=== PATIENT | female | born 1930 | race Caucasian/White ===

== ENCOUNTER 2018-02-19 19:22 | Inpatient (IN) | payer MEDICARE ==
[~2018-02-19] VITALS: Ht 160 cm; Wt 43.7 kg
[~2018-02-19 19:22] MED LIST: ACET325T9 PO; ACET325T9 PR; BISA-42 PR; BISA10SU13 RC; CRAN400C PO; DICL100G18 TP; GUAI-297 PO; HYDR-2762 PO; HYOS0.1264 PO; Lactobacillus PO; MAGN400T22 PO; MELA5CAP PO; MULTI VITAMINS PO; POLY17PO29 PO; SULF-143 PO; TRAM50TA PO; TRIM100T13 PO; WARF3TAB54 PO
[2018-02-19 19:59] LABS: BILIRUBIN,URINE NEGATIVE (NEG); CLARITY,URINE TURBID; COLOR,URINE YELLOW; NITRITE,URINE NEGATIVE (NEG); PH,URINE 8.5; PROTEIN,URINE 100 mg/dL (NEG-TRACE); UROBILINOGEN,URINE 0.2 mg/dL (0.2 mg/dL)
[2018-02-19] MEDS ORDERED: VANCOMYCIN PER PHARMACY MC PRN (20:00)
[2018-02-19] MEDS ORDERED: IV NORMAL SALINE 500ML BAG 500 ML IV PRN (20:00)
[2018-02-19 20:07] LABS: BACTERIA,URINE MANY /HPF (0-FEW); SQUAMOUS EPITHELIAL CELL,UR FEW /LPF; WBC,URINE >40 /HPF (0-4)
[2018-02-19 20:09] LABS: BASO # 0.1 x10^3/uL (0.0-0.2); BASO % 0 % (0-3); EOS % 0 % (0-3); HEMATOCRIT 30.7 % (36.0-47.0); HEMOGLOBIN 10.2 g/dL (12.0-15.5); LYMPH # 0.9 x10^3/uL (1.0-4.8); LYMPH % 5 % (24-48); MEAN CORPUSCULAR HEMOGLOBIN 32 pg (25-35); MEAN CORPUSCULAR HGB CONC 33 g/dL (31-37); MEAN CORPUSCULAR VOLUME 95 fL (79-100); MONO # 1.4 x10^3/uL (0.0-1.1); MONO % 7 % (0-9); NEUT % 87 % (31-73); PLATELET COUNT 424 x10^3/uL (140-400); RED BLOOD COUNT 3.22 x10^6/uL (3.50-5.40); RED CELL DISTRIBUTION WIDTH 13.7 % (11.5-14.5); WHITE BLOOD COUNT 19.5 x10^3/uL (4.0-11.0)
[2018-02-19] MEDS: IV NORMAL SALINE 1000ML BAG 1,000 ML IV SCH ×2 (20:25→20:34)
[2018-02-19] MEDS ORDERED: ACETAMINOPHEN 650 MG SUPP.RECT. PR ONE (20:30)
[2018-02-19] MEDS ORDERED: PIPERACILLIN/TAZOBACTAM 3.375 GM in IV NORMAL SALINE 50ML 50 ML IV ONE (20:30)
[2018-02-19 20:34] LABS: CALCIUM 9.6 mg/dL (8.5-10.1); GFR 23.5; POTASSIUM 4.1 mmol/L (3.5-5.1)
[2018-02-19 20:40] LABS: ALBUMIN 2.7 g/dL (3.4-5.0); ALBUMIN/GLOBULIN RATIO 0.4 (1.0-1.7); MAGNESIUM 2.3 mg/dL (1.8-2.4); TOTAL BILIRUBIN 0.2 mg/dL (0.2-1.0); TOTAL PROTEIN 9.4 g/dL (6.4-8.2)
--- NOTE | 2018-02-19 20:51 | RAD ---
CT HEAD INDICATION: Altered mental status COMPARISON: None Available. TECHNIQUE: 5 mm contiguous axial images were obtained from the skull base to the vertex. Exposure: One or more of the following individualized dose reduction techniques were utilized for this examination: 1. Automated exposure control 2. Adjustment of the mA and/or kV according to patient size 3. Use of iterative reconstruction technique CT FINDINGS: Moderate bilateral periventricular white matter hypodensities likely chronic small vessel ischemic disease. No evidence of acute intracranial hemorrhage. No extra-axial fluid collections. No mass effect or midline shift. Ventricular size is appropriate. Basal cisterns are patent. No fractures identified.Daugherty-white differentiation is preserved.Globes and orbits are within normal limits. Opacification the bilateral mastoid air cells similar to prior exam. IMPRESSION: No acute intracranial findings. Electronically signed by: Misha Laboy MD (02/19/2018 8:48 PM) [facility]
[2018-02-19] MEDS ORDERED: VANCOMYCIN 1.25 GM in IV NORMAL SALINE 250ML 250 ML IV ONE (21:00)
[2018-02-19 21:05] LABS: % BANDS 1 % (0-9); % BASOS 1 % (0-3); % LYMPHS 8 % (24-48); % MONOS 8 % (0-10); % SEGS 82 % (35-66)
[2018-02-19 21:07] LABS: PLT ESTIMATE ADEQUATE (ADEQUATE)
--- NOTE | 2018-02-19 21:08 | PHYS DOC ---
Past Medical History Past Medical History: Dementia, Other Additional Past Medical Histor: Dementia, falls, left femur fx, CKD, UTI, Constipation,Knee pain,Hypokalemia Past Surgical History: Other Additional Past Surgical Histo: left femur fx with pain Alcohol Use: None Drug Use: None Adult General Chief Complaint Chief Complaint: ALTERED MENTAL STATUS HPI HPI Patient is a 87 year old female with a history of dementia who presents today from the local retirement to be evaluated for altered status mental state change. A retirement employees they noted patient was not acting like herself today. Patient is alert and oriented 1. She arrives in the ED with a temperature of 101.7 with a heart rate in the 120s. Review of Systems Review of Systems Constitutional: Fever Eyes: Unable to assess HENT: Unable to assess Respiratory: Unable to assess Cardiovascular: Unable to assess GI: Unable to assess : Unable to assess Musculoskeletal: Unable to assess Integument: unable to assess Neurologic: Unable to assess All other systems were reviewed and found to be within normal limits, except as documented in this note. Current Medications Current Medications Current Medications Medications (Trade) Dose Ordered Sig/Raisa Start Time Stop Time Status Last Admin Dose Admin Sodium Chloride 500 ml @ 1,000 mls/hr PRN Q30MIN PRN 02/19/18 20:00 Vancomycin HCl (Vanco Per Pharmacy) 1 each PRN DAILY PRN 02/19/18 20:00 Allergies Allergies Allergies Coded Allergies Type Severity Reaction Last Updated Verified levofloxacin Allergy Intermediate 09/01/15 Yes Physical Exam Physical Exam Constitutional: Thin appearing toxic patient HENT: Normocephalic, atraumatic, bilateral external ears normal, oropharynx moist, no oral exudates, nose normal. Very poor oral hygiene. Eyes: PERRLA, EOMI, conjunctiva normal, no discharge. [] Neck: Normal range of motion, no tenderness, supple, no stridor. [] Cardiovascular: Tachycardic Lungs & Thorax: Diminished breath sounds to posterior lung bases Abdomen: Bowel sounds normal, soft, no tenderness, no masses, no pulsatile masses. [] Skin: Warm, very dry dry skin, no erythema, no rash. [] Back: No tenderness, no CVA tenderness. [] Extremities: No tenderness, no cyanosis, no clubbing, ROM intact, no edema. [] Neurologic: Alert and oriented X 1, normal motor function, normal sensory function, no focal deficits noted. [] Psychologic: Affect normal, judgement normal, mood normal. [] Current Patient Data Vital Signs Vital Signs Date Time Temp Pulse Resp B/P (MAP) Pulse Ox O2 Delivery O2 Flow Rate FiO2 02/19/18 19:25 101.7 121 28 108/57 (74) 92 Room Air 101.7 Lab Values Laboratory Tests Test 02/19/18 19:30 02/19/18 19:45 Urine Collection Type U cath Urine Color Yellow Urine Clarity Turbid Urine pH 8.5 Urine Specific [place] 1.015 Urine Protein 100 mg/dL (NEG-TRACE) Urine Glucose (UA) Negative mg/dL (NEG) Urine Ketones (Stick) Negative mg/dL (NEG) Urine Blood Moderate (NEG) Urine Nitrite Negative (NEG) Urine Bilirubin Negative (NEG) Urine Urobilinogen Dipstick 0.2 mg/dL (0.2 mg/dL) Urine Leukocyte Esterase Large (NEG) Urine RBC 3-5 /HPF (0-2) Urine WBC >40 /HPF (0-4) Urine Squamous Epithelial Cells Few /LPF Urine Transitional Epithelial Cells Occ /LPF Urine Bacteria Many /HPF (0-FEW) Urine Mucus Marked /LPF White Blood Count 19.5 x10^3/uL (4.0-11.0) H Red Blood Count 3.22 x10^6/uL (3.50-5.40) L Hemoglobin 10.2 g/dL (12.0-15.5) L Hematocrit 30.7 % (36.0-47.0) L Mean Corpuscular Volume 95 fL (79-100) Mean Corpuscular Hemoglobin 32 pg (25-35) Mean Corpuscular Hemoglobin Concent 33 g/dL (31-37) Red Cell Distribution Width 13.7 % (11.5-14.5) Platelet Count 424 x10^3/uL (140-400) H Neutrophils (%) (Auto) 87 % (31-73) H Lymphocytes (%) (Auto) 5 % (24-48) L Monocytes (%) (Auto) 7 % (0-9) Eosinophils (%) (Auto) 0 % (0-3) Basophils (%) (Auto) 0 % (0-3) Neutrophils # (Auto) 17.0 x10^3uL (1.8-7.7) H Lymphocytes # (Auto) 0.9 x10^3/uL (1.0-4.8) L Monocytes # (Auto) 1.4 x10^3/uL (0.0-1.1) H Eosinophils # (Auto) 0.0 x10^3/uL (0.0-0.7) Basophils # (Auto) 0.1 x10^3/uL (0.0-0.2) Segmented Neutrophils % 82 % (35-66) H Band Neutrophils % 1 % (0-9) Lymphocytes % 8 % (24-48) L Monocytes % 8 % (0-10) Basophils % 1 % (0-3) Platelet Estimate Adequate (ADEQUATE) Sodium Level 137 mmol/L (136-145) Potassium Level 4.1 mmol/L (3.5-5.1) Chloride Level 100 mmol/L (98-107) Carbon Dioxide Level 24 mmol/L (21-32) Anion Gap 13 (6-14) Blood Urea Nitrogen 31 mg/dL (7-20) H Creatinine 2.0 mg/dL (0.6-1.0) H Estimated GFR (Cockcroft-Gault) 23.5 BUN/Creatinine Ratio 16 (6-20) Glucose Level 171 mg/dL (70-99) H Lactic Acid Level 3.0 mmol/L (0.4-2.0) H Calcium Level 9.6 mg/dL (8.5-10.1) Magnesium Level 2.3 mg/dL (1.8-2.4) Total Bilirubin 0.2 mg/dL (0.2-1.0) Aspartate Amino Transferase (AST) 14 U/L (15-37) L Alanine Aminotransferase (ALT) 16 U/L (14-59) Alkaline Phosphatase 95 U/L (46-116) Troponin I Quantitative < 0.017 ng/mL (0.000-0.055) Total Protein 9.4 g/dL (6.4-8.2) H Albumin 2.7 g/dL (3.4-5.0) L Albumin/Globulin Ratio 0.4 (1.0-1.7) L Procalcitonin 0.36 ng/mL (0.00-0.10) H Laboratory Tests 02/19/18 19:45 Laboratory Tests 02/19/18 19:45 EKG EKG [] Radiology/Procedures Radiology/Procedures [] Course & Med Decision Making Course & Med Decision Making Pertinent Labs and Imaging studies reviewed. (See chart for details) This is a 87-year-old female patient presented to the ED today from the local retirement to be assessed for altered status mental change. Patient arrives in the ED with a temperature of 101.7 and a heart rate in the 120s. Blood pressure 108/57. Sepsis workup was initiated. Patient is alert and oriented to self hx of Dementia. Sepsis workup was initiated including IV fluids and antibiotics. Patient given Zosyn and vancomycin per sepsis protocol. Also given Tylenol suppository. CBC with a WBC of 19.5 with a left shift. Urine analysis is noted for UTI. Lactic 3.0. Creatinine 2.0 BUN 31, unknown if patient has history of renal failure. CT of the head is negative for any acute findings. 20:[address] Geronimo who accepted patient for the admission Routine consult placed for infectious disease. Dragon Disclaimer Dragon Disclaimer This electronic medical record was generated, in whole or in part, using a voice recognition dictation system. Departure Departure Impression: Primary Impression: Acute sepsis Additional Impressions: Urinary tract infection Fever Tachycardia Altered mental status Disposition: ADMITTED INPATIENT Condition: STABLE Referrals: UNKNOWN PCP NAME (PCP) Problem Qualifiers Additional Impressions: Urinary tract infection Urinary tract infection type: site unspecified Hematuria presence: without hematuria Qualified Codes: N39.0 - Urinary tract infection, site not specified Fever Fever type: unspecified Qualified Codes: R50.9 - Fever, unspecified Altered mental status Altered mental status type: unspecified Qualified Codes: R41.82 - Altered mental status, unspecified [employer] [place] Feb 19, 2018 21:08
[2018-02-19] MEDS ORDERED: ACETAMINOPHEN 325 MG TABLET. PO PRN (21:30)
[2018-02-19] MEDS ORDERED: MORPHINE SULFATE 4 MG/ML VIAL. IV PRN (21:30)
[2018-02-19] MEDS ORDERED: ONDANSETRON PF 4 MG/2 ML VIAL. IV PRN (21:30)
[2018-02-19] MEDS ORDERED: IV NORMAL SALINE 1000ML BAG 1,000 ML IV ONE (21:30)
[2018-02-19 21:36] VITALS: BP 101/48
[2018-02-19 23:00] VITALS: BP 96/56
[2018-02-19] MEDS ORDERED: ONDA4TAB11 PO (23:35)
[2018-02-19] MEDS ORDERED: CYAN10005 PO (23:35)
[2018-02-19] MEDS ORDERED: VENL75TA PO (23:35)
[2018-02-19] MEDS ORDERED: MAG360OR24 PO (23:35)
[2018-02-19] MEDS ORDERED: NYST100054 TP (23:35)
[2018-02-20] MEDS ORDERED: PIPERACILLIN/TAZOBACTAM 4.5 GM in IV NORMAL SALINE 100ML 100 ML IV SCH ×2
[2018-02-20 03:00] VITALS: BP 91/54
[2018-02-20 05:06] LABS: BASO # 0.1 x10^3/uL (0.0-0.2); BASO % 1 % (0-3); EOS # 0.1 x10^3/uL (0.0-0.7); EOS % 0 % (0-3); HEMATOCRIT 23.2 % (36.0-47.0); HEMOGLOBIN 7.7 g/dL (12.0-15.5); LYMPH # 1.3 x10^3/uL (1.0-4.8); LYMPH % 9 % (24-48); MEAN CORPUSCULAR HEMOGLOBIN 32 pg (25-35); MEAN CORPUSCULAR HGB CONC 33 g/dL (31-37); MEAN CORPUSCULAR VOLUME 95 fL (79-100); MONO # 1.4 x10^3/uL (0.0-1.1); MONO % 10 % (0-9); NEUT # 11.4 x10^3uL (1.8-7.7); NEUT % 80 % (31-73); PLATELET COUNT 323 x10^3/uL (140-400); RED BLOOD COUNT 2.43 x10^6/uL (3.50-5.40); RED CELL DISTRIBUTION WIDTH 13.6 % (11.5-14.5); WHITE BLOOD COUNT 14.2 x10^3/uL (4.0-11.0)
[2018-02-20 05:52] LABS: CALCIUM 7.8 mg/dL (8.5-10.1); CREATININE 1.8 mg/dL (0.6-1.0); GFR 26.6; POTASSIUM 3.6 mmol/L (3.5-5.1)
[2018-02-20 07:56] VITALS: BP 117/45
--- NOTE | 2018-02-20 08:37 | RAD ---
CHEST AP ONLY History: Altered mental status Comparison: January 31, 2016 Findings: Single view of the chest is submitted. There is mild interstitial opacity bilaterally as seen previously, no new lobar consolidation or pleural fluid. There is again eventration right hemidiaphragm. There is no pneumothorax. There is somewhat round opacity medial right lung base, difficult to exclude a nodule this exam. There is atherosclerotic calcification near aortic arch. Heart size is within normal limits. Impression: 1. There is a somewhat round opacity medial right lung base, small nodule difficult to exclude although may be due to the vasculature for which two-view chest radiograph is recommended. Electronically signed by: Moe Reyes MD (02/20/2018 8:34 AM) [facility]
--- NOTE | 2018-02-20 09:25 | PDOC ---
Infectious Disease Note Vital Sign Vital Signs Vital Signs Date Time Temp Pulse Resp B/P (MAP) Pulse Ox O2 Delivery O2 Flow Rate FiO2 02/20/18 07:56 97.8 81 20 117/45 (69) 100 Room Air 97.8 Labs Lab Laboratory Tests Test 02/19/18 19:30 02/19/18 19:45 02/19/18 23:29 02/20/18 03:56 Urine Collection Type U cath Urine Color Yellow Urine Clarity Turbid Urine pH 8.5 Urine Specific [place] 1.015 Urine Protein 100 mg/dL (NEG-TRACE) Urine Glucose (UA) Negative mg/dL (NEG) Urine Ketones (Stick) Negative mg/dL (NEG) Urine Blood Moderate (NEG) Urine Nitrite Negative (NEG) Urine Bilirubin Negative (NEG) Urine Urobilinogen Dipstick 0.2 mg/dL (0.2 mg/dL) Urine Leukocyte Esterase Large (NEG) Urine RBC 3-5 /HPF (0-2) Urine WBC >40 /HPF (0-4) Urine Squamous Epithelial Cells Few /LPF Urine Transitional Epithelial Cells Occ /LPF Urine Bacteria Many /HPF (0-FEW) Urine Mucus Marked /LPF White Blood Count 19.5 x10^3/uL (4.0-11.0) 14.2 x10^3/uL (4.0-11.0) Red Blood Count 3.22 x10^6/uL (3.50-5.40) 2.43 x10^6/uL (3.50-5.40) Hemoglobin 10.2 g/dL (12.0-15.5) 7.7 g/dL (12.0-15.5) Hematocrit 30.7 % (36.0-47.0) 23.2 % (36.0-47.0) Mean Corpuscular Volume 95 fL (79-100) 95 fL (79-100) Mean Corpuscular Hemoglobin 32 pg (25-35) 32 pg (25-35) Mean Corpuscular Hemoglobin Concent 33 g/dL (31-37) 33 g/dL (31-37) Red Cell Distribution Width 13.7 % (11.5-14.5) 13.6 % (11.5-14.5) Platelet Count 424 x10^3/uL (140-400) 323 x10^3/uL (140-400) Neutrophils (%) (Auto) 87 % (31-73) 80 % (31-73) Lymphocytes (%) (Auto) 5 % (24-48) 9 % (24-48) Monocytes (%) (Auto) 7 % (0-9) 10 % (0-9) Eosinophils (%) (Auto) 0 % (0-3) 0 % (0-3) Basophils (%) (Auto) 0 % (0-3) 1 % (0-3) Neutrophils # (Auto) 17.0 x10^3uL (1.8-7.7) 11.4 x10^3uL (1.8-7.7) Lymphocytes # (Auto) 0.9 x10^3/uL (1.0-4.8) 1.3 x10^3/uL (1.0-4.8) Monocytes # (Auto) 1.4 x10^3/uL (0.0-1.1) 1.4 x10^3/uL (0.0-1.1) Eosinophils # (Auto) 0.0 x10^3/uL (0.0-0.7) 0.1 x10^3/uL (0.0-0.7) Basophils # (Auto) 0.1 x10^3/uL (0.0-0.2) 0.1 x10^3/uL (0.0-0.2) Segmented Neutrophils % 82 % (35-66) Band Neutrophils % 1 % (0-9) Lymphocytes % 8 % (24-48) Monocytes % 8 % (0-10) Basophils % 1 % (0-3) Platelet Estimate Adequate (ADEQUATE) Sodium Level 137 mmol/L (136-145) 139 mmol/L (136-145) Potassium Level 4.1 mmol/L (3.5-5.1) 3.6 mmol/L (3.5-5.1) Chloride Level 100 mmol/L (98-107) 107 mmol/L (98-107) Carbon Dioxide Level 24 mmol/L (21-32) 24 mmol/L (21-32) Anion Gap 13 (6-14) 8 (6-14) Blood Urea Nitrogen 31 mg/dL (7-20) 28 mg/dL (7-20) Creatinine 2.0 mg/dL (0.6-1.0) 1.8 mg/dL (0.6-1.0) Estimated GFR (Cockcroft-Gault) 23.5 26.6 BUN/Creatinine Ratio 16 (6-20) Glucose Level 171 mg/dL (70-99) 101 mg/dL (70-99) Lactic Acid Level 3.0 mmol/L (0.4-2.0) 1.0 mmol/L (0.4-2.0) 1.0 mmol/L (0.4-2.0) Calcium Level 9.6 mg/dL (8.5-10.1) 7.8 mg/dL (8.5-10.1) Magnesium Level 2.3 mg/dL (1.8-2.4) Total Bilirubin 0.2 mg/dL (0.2-1.0) Aspartate Amino Transf (AST/SGOT) 14 U/L (15-37) Alanine Aminotransferase (ALT/SGPT) 16 U/L (14-59) Alkaline Phosphatase 95 U/L (46-116) Troponin I Quantitative < 0.017 ng/mL (0.000-0.055) Total Protein 9.4 g/dL (6.4-8.2) Albumin 2.7 g/dL (3.4-5.0) Albumin/Globulin Ratio 0.4 (1.0-1.7) Procalcitonin 0.36 ng/mL (0.00-0.10) Objective Assessment fever Encephalopathy - better Abx allergy - Levoflox - mental status change UTI- POA JINNY Interstitial opacity Anemia - per primary Plan Plan of Care Cont Zosyn Hold further Vanc dose Zyvox F/u labs and cults Repeat CXR May need swallow eval D/w son Thank you # [phone] MARIFER MILES MD Feb 20, 2018 09:25
[2018-02-20] MEDS: PIPERACILLIN/TAZOBACTAM 2.25 GM in IV NORMAL SALINE 50ML 50 ML IV SCH ×4 (09:30→23:34)
--- NOTE | 2018-02-20 09:45 | RAD ---
Portable chest, 02/20/2018: HISTORY: Follow-up infiltrates Comparison is made to yesterday's study. The heart size is normal. There is calcific plaquing of the aorta. Tc calcifications are present at the left hilum. Slight unchanged prominence of the pulmonary markings is probably due to scarring. No prior consolidation is seen. There is no evidence of pleural fluid. IMPRESSION: No acute cardiopulmonary abnormality is detected with no significant change since yesterday's study. Electronically signed by: Tyron Varghese MD (02/20/2018 9:42 AM) [facility]
[2018-02-20 11:00] VITALS: BP 102/52
[2018-02-20] MEDS ORDERED: ACETAMINOPHEN 325 MG TABLET. PO PRN (11:00)
[2018-02-20] MEDS ORDERED: DOCUSATE SODIUM 100 MG CAPSULE. PO PRN (11:00)
[2018-02-20] MEDS ORDERED: MORPHINE SULFATE 2 MG/ML VIAL. IV PRN (11:00)
[2018-02-20] MEDS ORDERED: ONDANSETRON PF 4 MG/2 ML VIAL. IV PRN (11:00)
[2018-02-20] MEDS: IV NORMAL SALINE 1000ML BAG 1,000 ML IV SCH (11:34)
[2018-02-20] MEDS: CYANOCOBALAMIN (VITAMIN B-12) 1,000 MCG TABLET. PO SCH (11:36)
[2018-02-20] MEDS: MULTIVITAMIN with MINERAL TABLET. PO SCH (11:37)
[2018-02-20] MEDS: VENLAFAXINE 50 MG TABLET. PO SCH ×2 (12:42→21:30)
[2018-02-20] MEDS: HEPARIN PF for SUB-Q USE 5,000 UNIT/0.5 ML VIAL. SQ SCH ×2 (12:44→21:41)
--- NOTE | 2018-02-20 12:55 | CONS ---
DATE OF CONSULTATION: 02/20/2018 ROOM: 656. REQUESTING PHYSICIAN: Amparo Barakat APRN for Dr. Geronimo. REASON FOR CONSULTATION: Sepsis, UTI. HISTORY OF PRESENT ILLNESS: The patient is an 87-year-old senior care resident with a distant history of urinary tract infections. Her son is with her this morning and states over the past week, her appetite has decreased per the nursing facility staff. However, yesterday, he left about noon and she was doing fine, but then, he received a phone call at about 5:00 in the afternoon that her heart rate had increased and she developed a mental status change. She was brought to [facility]. She had a temperature of 101.7, heart rate was elevated in the 120s, white count was 19.5. Urinalysis was suggestive of a urinary tract infection and creatinine was elevated at 2. She was given a dose of Zosyn, placed on vancomycin. A chest x-ray was obtained and showed she had a mild interstitial opacity bilaterally. She was admitted to the floor. This morning, her son states she is much better. She ate better. She is not able to give a review of systems secondary to her dementia. PAST MEDICAL HISTORY: Positive for dementia, history of chronic knee pain, history of left femur fracture that has been repaired, history of Klebsiella UTI in 08/2015, resistant to ampicillin, Unasyn, intermediate to Keflex and Macrobid. REVIEW OF SYSTEMS: Unobtainable. ALLERGIES: LISTED LEVOFLOXACIN, WHICH CAUSED A MENTAL STATUS CHANGE. SOCIAL HISTORY: She is a senior care resident. No recent tobacco or alcohol. FAMILY HISTORY: Noncontributory. CURRENT MEDICATIONS: Again, she received a dose of Zosyn. He has been placed on vancomycin per pharmacy, Tylenol suppositories, morphine. Other meds are available and reviewed in the chart. PHYSICAL EXAMINATION: VITAL SIGNS: T-max was 101.7 on arrival, currently 97.8, pulse 81, respirations 20, blood pressure 117/45, satting 100% on room air. CONSTITUTIONAL: She is alert. She smiles. She has normal conjunctivae. Mouth is dry. NECK: Without JVD. LUNGS: Clear to auscultation. HEART: S1, S2. ABDOMEN: Soft, nontender. EXTREMITIES: No clubbing, cyanosis or . SKIN: Warm to touch without signs of rash. NEUROLOGIC: She is alert and did focus. LABORATORY VALUES: White count today 14.2, hemoglobin 7.7, platelets of 323, neutrophils 8, lymphs are 9. She had 1 band, 82 segs on arrival. Creatinine today is 1.8, glucose of 101. Procalcitonin 0.36. Normal liver function study tests. Urinalysis reviewed in the history of present illness. X-RAY: Reviewed in history of present illness. IMPRESSION: 1. Fever. 2. Encephalopathy, better. 3. ANTIBIOTIC ALLERGY, LEVOFLOXACIN CAUSED MENTAL STATUS CHANGE. 4. Urinary tract infection, present on admission. 5. Acute kidney injury. 6. Interstitial opacity on chest x-ray. 7. Anemia, per primary. RECOMMENDATIONS: We will continue Zosyn. We will hold further vancomycin, we will dose Zyvox. Will follow up labs, cultures, repeat her chest x-ray, may need a swallow evaluation as discussed with her son. If you have any further concerns or questions, please do not hesitate to contact me. MARIFER MILES MD DR: CAMILLE/bret JOB#: [id number] / [id number]
--- NOTE | 2018-02-20 13:43 | PDOC1 ---
History and Physical Date of Admission Date of Admission 02/20/18 Identification/Chief Complaint Chief Complaint ams fever Source Source: Chart review History of Present Illness History of Present Illness HPI HPI Patient is a 87 year old female with a history of dementia who presents today from the local senior living to be evaluated for altered status mental state change. pt has baseline severe dementia, this is likely her baseline? as per ERP, [facility] employees they noted patient was not acting like herself today. Patient is alert and oriented 1. She arrives in the ED with a temperature of 101.7 with a heart rate in the 120s. urine looks UTI. with high wbc and fever. pt not answer any questions or follow commands. Past Medical History CENTRAL NERVOUS SYSTEM: Dementia Renal/: UTI, Urinary Incontinence Past Surgical History Past Surgical History: Other Family History Family History: Hypertension Social History Smoke: No ALCOHOL: none Drugs: None Current Problem List Problem List Problems Medical Problems: (1) Acute sepsis Status: Acute (2) Altered mental status Status: Acute (3) Fever Status: Acute (4) Tachycardia Status: Acute (5) Urinary tract infection Status: Acute Current Medications Current Medications Current Medications Medications (Trade) Dose Ordered Sig/Raisa Start Time Stop Time Status Last Admin Dose Admin Acetaminophen (Tylenol Supp) 650 mg 1X ONCE 02/19/18 20:30 02/19/18 20:31 DC 02/19/18 20:30 650 MG Acetaminophen (Tylenol) 650 mg PRN Q6HRS PRN 02/20/18 11:00 Cyanocobalamin (Vitamin B-12) 1,000 mcg DAILY08 02/20/18 11:30 02/20/18 11:36 1,000 MCG Docusate Sodium (Colace) 100 mg PRN DAILY PRN 02/20/18 11:00 Heparin Sodium (Porcine) (Heparin Sq) 5,000 unit Q8HRS 02/20/18 14:00 02/20/18 12:44 5,000 UNIT Lactobacillus Rhamnosus (Culturelle) 1 cap BID 02/20/18 21:00 Linezolid/Dextrose 300 ml @ 300 mls/hr Q12HR 02/20/18 10:00 02/20/18 10:16 300 MLS/HR Morphine Sulfate (Morphine Sulfate) 2 mg PRN Q2HR PRN 02/20/18 11:00 Multivitamins (Thera M Plus) 1 tab DAILY 02/20/18 11:30 02/20/18 11:37 1 TAB Ondansetron HCl (Zofran) 4 mg PRN Q6HRS PRN 02/20/18 11:00 Piperacillin Sod/ Tazobactam Sod 2.25 gm/Sodium Chloride 50 ml @ 100 mls/hr Q6HRS 02/20/18 09:30 02/20/18 11:34 100 MLS/HR Piperacillin Sod/ Tazobactam Sod 3.375 gm/Sodium Chloride 50 ml @ 100 mls/hr 1X ONCE 02/19/18 20:30 02/19/18 20:59 DC 02/19/18 20:25 100 MLS/HR Piperacillin Sod/ Tazobactam Sod 4.5 gm/Sodium Chloride 100 ml @ 200 mls/hr Q6HRS 02/20/18 00:00 02/20/18 00:00 DC Polyethylene Glycol (miraLAX PACKET) 17 gm PRN DAILY PRN 02/21/18 09:00 Sodium Chloride 1,000 ml @ 75 mls/hr [id number] 02/20/18 11:00 02/20/18 11:34 75 MLS/HR Tramadol HCl (Ultram) 50 mg PRN Q6HRS PRN 02/20/18 11:00 Vancomycin HCl (Vanco Per Pharmacy) 1 each PRN DAILY PRN 02/19/18 20:00 02/20/18 09:19 DC 02/20/18 00:57 1 EACH Vancomycin HCl (Vancomycin Random Level) 1 each 1X ONCE 02/21/18 21:00 02/21/18 21:00 DC Vancomycin HCl 1.25 gm/Sodium Chloride 250 ml @ 166.667 mls/hr 1X ONCE 02/19/18 21:00 02/19/18 22:29 DC 02/19/18 20:55 166.667 MLS/HR Venlafaxine HCl (Effexor) 50 mg TID 02/20/18 14:00 02/20/18 12:42 50 MG Allergies Allergies Allergies Coded Allergies Type Severity Reaction Last Updated Verified levofloxacin Allergy Intermediate 09/01/15 Yes ROS Review of System CONSTITUTIONAL: No fever or chills EYES: No recent changes SKIN: No rash or itching CARDIOVASCULAR: No chest pain, syncope, palpitations, or edema RESPIRATORY: No SOB or cough GASTROINTESTINAL: No nausea, vomiting or abdominal pain NEUROLOGICAL: No headaches or weakness ENDOCRINE: No cold or heat intolerance GENITOURINARY: No urgency or frequency of urination MUSCULOSKELETAL: No back pain or joint pain LYMPHATICS: No enlarged lymph nodes PSYCHIATRIC: No anxiety or depression Physical Exam Physical Exam GEN.: No apparent distress. Alert and oriented x0. awake , alert. not answer questions or follow commands. HEENT: Head is normocephalic, atraumatic NECK: Supple. LUNGS: Clear to auscultation. HEART: RRR, S1, S2 present. Peripheral pulses intact ABDOMEN: Soft, nontender. Positive bowel sounds. EXTREMITIES: Without any cyanosis. NEUROLOGIC: Normal speech, normal tone PSYCHIATRIC: Normal affect, normal mood. SKIN: No ulcerations Vitals Vitals Vital Signs Date Time Temp Pulse Resp B/P (MAP) Pulse Ox O2 Delivery O2 Flow Rate FiO2 02/20/18 11:00 98.1 87 18 102/52 (69) 100 Room Air 98.1 Labs Labs Laboratory Tests Test 02/19/18 19:30 02/19/18 19:45 02/19/18 23:29 02/20/18 03:56 Urine Collection Type U cath Urine Color Yellow Urine Clarity Turbid Urine pH 8.5 Urine Specific Flora 1.015 Urine Protein 100 mg/dL (NEG-TRACE) Urine Glucose (UA) Negative mg/dL (NEG) Urine Ketones (Stick) Negative mg/dL (NEG) Urine Blood Moderate (NEG) Urine Nitrite Negative (NEG) Urine Bilirubin Negative (NEG) Urine Urobilinogen Dipstick 0.2 mg/dL (0.2 mg/dL) Urine Leukocyte Esterase Large (NEG) Urine RBC 3-5 /HPF (0-2) Urine WBC >40 /HPF (0-4) Urine Squamous Epithelial Cells Few /LPF Urine Transitional Epithelial Cells Occ /LPF Urine Bacteria Many /HPF (0-FEW) Urine Mucus Marked /LPF White Blood Count 19.5 x10^3/uL (4.0-11.0) 14.2 x10^3/uL (4.0-11.0) Red Blood Count 3.22 x10^6/uL (3.50-5.40) 2.43 x10^6/uL (3.50-5.40) Hemoglobin 10.2 g/dL (12.0-15.5) 7.7 g/dL (12.0-15.5) Hematocrit 30.7 % (36.0-47.0) 23.2 % (36.0-47.0) Mean Corpuscular Volume 95 fL (79-100) 95 fL (79-100) Mean Corpuscular Hemoglobin 32 pg (25-35) 32 pg (25-35) Mean Corpuscular Hemoglobin Concent 33 g/dL (31-37) 33 g/dL (31-37) Red Cell Distribution Width 13.7 % (11.5-14.5) 13.6 % (11.5-14.5) Platelet Count 424 x10^3/uL (140-400) 323 x10^3/uL (140-400) Neutrophils (%) (Auto) 87 % (31-73) 80 % (31-73) Lymphocytes (%) (Auto) 5 % (24-48) 9 % (24-48) Monocytes (%) (Auto) 7 % (0-9) 10 % (0-9) Eosinophils (%) (Auto) 0 % (0-3) 0 % (0-3) Basophils (%) (Auto) 0 % (0-3) 1 % (0-3) Neutrophils # (Auto) 17.0 x10^3uL (1.8-7.7) 11.4 x10^3uL (1.8-7.7) Lymphocytes # (Auto) 0.9 x10^3/uL (1.0-4.8) 1.3 x10^3/uL (1.0-4.8) Monocytes # (Auto) 1.4 x10^3/uL (0.0-1.1) 1.4 x10^3/uL (0.0-1.1) Eosinophils # (Auto) 0.0 x10^3/uL (0.0-0.7) 0.1 x10^3/uL (0.0-0.7) Basophils # (Auto) 0.1 x10^3/uL (0.0-0.2) 0.1 x10^3/uL (0.0-0.2) Segmented Neutrophils % 82 % (35-66) Band Neutrophils % 1 % (0-9) Lymphocytes % 8 % (24-48) Monocytes % 8 % (0-10) Basophils % 1 % (0-3) Platelet Estimate Adequate (ADEQUATE) Sodium Level 137 mmol/L (136-145) 139 mmol/L (136-145) Potassium Level 4.1 mmol/L (3.5-5.1) 3.6 mmol/L (3.5-5.1) Chloride Level 100 mmol/L (98-107) 107 mmol/L (98-107) Carbon Dioxide Level 24 mmol/L (21-32) 24 mmol/L (21-32) Anion Gap 13 (6-14) 8 (6-14) Blood Urea Nitrogen 31 mg/dL (7-20) 28 mg/dL (7-20) Creatinine 2.0 mg/dL (0.6-1.0) 1.8 mg/dL (0.6-1.0) Estimated GFR (Cockcroft-Gault) 23.5 26.6 BUN/Creatinine Ratio 16 (6-20) Glucose Level 171 mg/dL (70-99) 101 mg/dL (70-99) Lactic Acid Level 3.0 mmol/L (0.4-2.0) 1.0 mmol/L (0.4-2.0) 1.0 mmol/L (0.4-2.0) Calcium Level 9.6 mg/dL (8.5-10.1) 7.8 mg/dL (8.5-10.1) Magnesium Level 2.3 mg/dL (1.8-2.4) Total Bilirubin 0.2 mg/dL (0.2-1.0) Aspartate Amino Transf (AST/SGOT) 14 U/L (15-37) Alanine Aminotransferase (ALT/SGPT) 16 U/L (14-59) Alkaline Phosphatase 95 U/L (46-116) Troponin I Quantitative < 0.017 ng/mL (0.000-0.055) Total Protein 9.4 g/dL (6.4-8.2) Albumin 2.7 g/dL (3.4-5.0) Albumin/Globulin Ratio 0.4 (1.0-1.7) Procalcitonin 0.36 ng/mL (0.00-0.10) Laboratory Tests Test 02/19/18 19:30 02/19/18 19:45 02/19/18 23:29 02/20/18 03:56 Urine Collection Type U cath Urine Color Yellow Urine Clarity Turbid Urine pH 8.5 Urine Specific Flora 1.015 Urine Protein 100 mg/dL (NEG-TRACE) Urine Glucose (UA) Negative mg/dL (NEG) Urine Ketones (Stick) Negative mg/dL (NEG) Urine Blood Moderate (NEG) Urine Nitrite Negative (NEG) Urine Bilirubin Negative (NEG) Urine Urobilinogen Dipstick 0.2 mg/dL (0.2 mg/dL) Urine Leukocyte Esterase Large (NEG) Urine RBC 3-5 /HPF (0-2) Urine WBC >40 /HPF (0-4) Urine Squamous Epithelial Cells Few /LPF Urine Transitional Epithelial Cells Occ /LPF Urine Bacteria Many /HPF (0-FEW) Urine Mucus Marked /LPF White Blood Count 19.5 x10^3/uL (4.0-11.0) 14.2 x10^3/uL (4.0-11.0) Red Blood Count 3.22 x10^6/uL (3.50-5.40) 2.43 x10^6/uL (3.50-5.40) Hemoglobin 10.2 g/dL (12.0-15.5) 7.7 g/dL (12.0-15.5) Hematocrit 30.7 % (36.0-47.0) 23.2 % (36.0-47.0) Mean Corpuscular Volume 95 fL (79-100) 95 fL (79-100) Mean Corpuscular Hemoglobin 32 pg (25-35) 32 pg (25-35) Mean Corpuscular Hemoglobin Concent 33 g/dL (31-37) 33 g/dL (31-37) Red Cell Distribution Width 13.7 % (11.5-14.5) 13.6 % (11.5-14.5) Platelet Count 424 x10^3/uL (140-400) 323 x10^3/uL (140-400) Neutrophils (%) (Auto) 87 % (31-73) 80 % (31-73) Lymphocytes (%) (Auto) 5 % (24-48) 9 % (24-48) Monocytes (%) (Auto) 7 % (0-9) 10 % (0-9) Eosinophils (%) (Auto) 0 % (0-3) 0 % (0-3) Basophils (%) (Auto) 0 % (0-3) 1 % (0-3) Neutrophils # (Auto) 17.0 x10^3uL (1.8-7.7) 11.4 x10^3uL (1.8-7.7) Lymphocytes # (Auto) 0.9 x10^3/uL (1.0-4.8) 1.3 x10^3/uL (1.0-4.8) Monocytes # (Auto) 1.4 x10^3/uL (0.0-1.1) 1.4 x10^3/uL (0.0-1.1) Eosinophils # (Auto) 0.0 x10^3/uL (0.0-0.7) 0.1 x10^3/uL (0.0-0.7) Basophils # (Auto) 0.1 x10^3/uL (0.0-0.2) 0.1 x10^3/uL (0.0-0.2) Segmented Neutrophils % 82 % (35-66) Band Neutrophils % 1 % (0-9) Lymphocytes % 8 % (24-48) Monocytes % 8 % (0-10) Basophils % 1 % (0-3) Platelet Estimate Adequate (ADEQUATE) Sodium Level 137 mmol/L (136-145) 139 mmol/L (136-145) Potassium Level 4.1 mmol/L (3.5-5.1) 3.6 mmol/L (3.5-5.1) Chloride Level 100 mmol/L (98-107) 107 mmol/L (98-107) Carbon Dioxide Level 24 mmol/L (21-32) 24 mmol/L (21-32) Anion Gap 13 (6-14) 8 (6-14) Blood Urea Nitrogen 31 mg/dL (7-20) 28 mg/dL (7-20) Creatinine 2.0 mg/dL (0.6-1.0) 1.8 mg/dL (0.6-1.0) Estimated GFR (Cockcroft-Gault) 23.5 26.6 BUN/Creatinine Ratio 16 (6-20) Glucose Level 171 mg/dL (70-99) 101 mg/dL (70-99) Lactic Acid Level 3.0 mmol/L (0.4-2.0) 1.0 mmol/L (0.4-2.0) 1.0 mmol/L (0.4-2.0) Calcium Level 9.6 mg/dL (8.5-10.1) 7.8 mg/dL (8.5-10.1) Magnesium Level 2.3 mg/dL (1.8-2.4) Total Bilirubin 0.2 mg/dL (0.2-1.0) Aspartate Amino Transf (AST/SGOT) 14 U/L (15-37) Alanine Aminotransferase (ALT/SGPT) 16 U/L (14-59) Alkaline Phosphatase 95 U/L (46-116) Troponin I Quantitative < 0.017 ng/mL (0.000-0.055) Total Protein 9.4 g/dL (6.4-8.2) Albumin 2.7 g/dL (3.4-5.0) Albumin/Globulin Ratio 0.4 (1.0-1.7) Procalcitonin 0.36 ng/mL (0.00-0.10) VTE Prophylaxis Ordered VTE Prophylaxis Devices: Yes VTE Pharmacological Prophylaxi: Yes Assessment/Plan Assessment/Plan AMS, metabolic encephalopathy severe baseline dementia UTI POA SEpsis JINNY, vasomotor ckd3 SNF resident plan: ID consulted, on zosyn, zyvox cont ivf swallow eval cont some home meds dvt, gi ppx labs tmr fu ucx, bcx SANJAY SHIN MD Feb 20, 2018 13:43
[2018-02-20 15:17] VITALS: BP 111/48
[2018-02-20 19:43] VITALS: BP 118/58
[2018-02-20] MEDS: LACTOBACILLUS RHAMNOSUS GG 1 CAPSULE. PO SCH (21:30)
[2018-02-20 23:20] VITALS: BP 102/42
[2018-02-21] MEDS: IV NORMAL SALINE 1000ML BAG 1,000 ML IV SCH ×2 (02:30→13:40)
[2018-02-21 03:15] VITALS: BP 106/54
[2018-02-21] MEDS: PIPERACILLIN/TAZOBACTAM 2.25 GM in IV NORMAL SALINE 50ML 50 ML IV SCH ×4 (05:29→23:47)
[2018-02-21] MEDS: HEPARIN PF for SUB-Q USE 5,000 UNIT/0.5 ML VIAL. SQ SCH ×3 (05:33→22:07)
[2018-02-21 07:48] VITALS: BP 116/56
--- NOTE | 2018-02-21 08:43 | PDOC ---
Infectious Disease Note Subjective Subjective States ok ROS ROS unreliable Vital Sign Vital Signs Vital Signs Date Time Temp Pulse Resp B/P (MAP) Pulse Ox O2 Delivery O2 Flow Rate FiO2 02/21/18 07:48 97.7 90 24 116/56 (76) 97 Room Air 97.7 Physical Exam PHYSICAL EXAM CONSTITUTIONAL: She is very alert. She smiles. She has normal conjunctivae. Mouth is dry. but opened mouth on command NECK: Without JVD. LUNGS: Clear to auscultation. HEART: S1, S2. ABDOMEN: Soft, nontender. EXTREMITIES: No clubbing, cyanosis or edema SKIN: Warm to touch without signs of rash. NEUROLOGIC: She is alert and did focus. Labs Micro Microbiology 02/19/18 Blood Culture - Preliminary, Resulted NO GROWTH AFTER 1 DAY Objective Assessment fever - better Encephalopathy - better Abx allergy - Levoflox - mental status change UTI- POA JINNY Interstitial opacity - repeat without acute changes Anemia - per primary Plan Plan of Care Cont Zosyn/Zyvox F/u labs and cults D/w son MARIFER MILES MD Feb 21, 2018 08:43
[2018-02-21] MEDS: VENLAFAXINE 50 MG TABLET. PO SCH ×3 (08:58→21:56)
[2018-02-21] MEDS: MULTIVITAMIN with MINERAL TABLET. PO SCH (08:58)
[2018-02-21] MEDS: CYANOCOBALAMIN (VITAMIN B-12) 1,000 MCG TABLET. PO SCH (08:58)
[2018-02-21] MEDS: LACTOBACILLUS RHAMNOSUS GG 1 CAPSULE. PO SCH ×2 (08:58→21:56)
[2018-02-21] MEDS ORDERED: POLYETHYLENE GLYCOL 3350 17 GM PACKET. PO PRN (09:00)
[2018-02-21 10:02] LABS: BASO # 0.1 x10^3/uL (0.0-0.2); BASO % 1 % (0-3); EOS # 0.1 x10^3/uL (0.0-0.7); EOS % 1 % (0-3); HEMATOCRIT 25.8 % (36.0-47.0); HEMOGLOBIN 8.7 g/dL (12.0-15.5); LYMPH # 0.9 x10^3/uL (1.0-4.8); LYMPH % 9 % (24-48); MEAN CORPUSCULAR HEMOGLOBIN 32 pg (25-35); MEAN CORPUSCULAR HGB CONC 34 g/dL (31-37); MEAN CORPUSCULAR VOLUME 96 fL (79-100); MONO # 0.7 x10^3/uL (0.0-1.1); MONO % 7 % (0-9); NEUT # 8.9 x10^3uL (1.8-7.7); NEUT % 83 % (31-73); PLATELET COUNT 333 x10^3/uL (140-400); RED BLOOD COUNT 2.69 x10^6/uL (3.50-5.40); WHITE BLOOD COUNT 10.7 x10^3/uL (4.0-11.0)
[2018-02-21 10:14] LABS: CALCIUM 7.9 mg/dL (8.5-10.1); CREATININE 1.7 mg/dL (0.6-1.0); GFR 28.4; POTASSIUM 3.4 mmol/L (3.5-5.1)
[2018-02-21 11:15] VITALS: BP 102/47
[2018-02-21] MEDS ORDERED: POTASSIUM CHLORIDE 20 MEQ/15 ML ORAL LIQUID. PO ONE (11:45)
--- NOTE | 2018-02-21 13:50 | PDOC ---
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 History of Present Illness History of Present Illness ROS: no fever, chills, sob or chest pain this is likely her baseline not talking to me or follow commands, talks a little bit to nurse. Vitals Vitals Vital Signs Date Time Temp Pulse Resp B/P (MAP) Pulse Ox O2 Delivery O2 Flow Rate FiO2 02/21/18 11:15 98.1 99 22 102/47 (65) 98 Room Air 98.1 Physical Exam Physical Exam CONSTITUTIONAL: She is very alert. She smiles. She has normal conjunctivae. Mouth is dry. but opened mouth on command to nurse. not answer my questions or follow commands to squeeze my fingers, do it spontaneously. NECK: Without JVD. LUNGS: Clear to auscultation. HEART: S1, S2. ABDOMEN: Soft, nontender. EXTREMITIES: No clubbing, cyanosis or edema SKIN: Warm to touch without signs of rash. NEUROLOGIC: She is alert and did focus. Lungs: Crackles Labs LABS Laboratory Tests Test 02/21/18 09:30 White Blood Count 10.7 x10^3/uL (4.0-11.0) Red Blood Count 2.69 x10^6/uL (3.50-5.40) Hemoglobin 8.7 g/dL (12.0-15.5) Hematocrit 25.8 % (36.0-47.0) Mean Corpuscular Volume 96 fL (79-100) Mean Corpuscular Hemoglobin 32 pg (25-35) Mean Corpuscular Hemoglobin Concent 34 g/dL (31-37) Red Cell Distribution Width 14.0 % (11.5-14.5) Platelet Count 333 x10^3/uL (140-400) Neutrophils (%) (Auto) 83 % (31-73) Lymphocytes (%) (Auto) 9 % (24-48) Monocytes (%) (Auto) 7 % (0-9) Eosinophils (%) (Auto) 1 % (0-3) Basophils (%) (Auto) 1 % (0-3) Neutrophils # (Auto) 8.9 x10^3uL (1.8-7.7) Lymphocytes # (Auto) 0.9 x10^3/uL (1.0-4.8) Monocytes # (Auto) 0.7 x10^3/uL (0.0-1.1) Eosinophils # (Auto) 0.1 x10^3/uL (0.0-0.7) Basophils # (Auto) 0.1 x10^3/uL (0.0-0.2) Sodium Level 136 mmol/L (136-145) Potassium Level 3.4 mmol/L (3.5-5.1) Chloride Level 106 mmol/L (98-107) Carbon Dioxide Level 22 mmol/L (21-32) Anion Gap 8 (6-14) Blood Urea Nitrogen 19 mg/dL (7-20) Creatinine 1.7 mg/dL (0.6-1.0) Estimated GFR (Cockcroft-Gault) 28.4 Glucose Level 171 mg/dL (70-99) Calcium Level 7.9 mg/dL (8.5-10.1) Iron Level 22 ug/dL (50-170) Total Iron Binding Capacity 185 ug/dL (250-450) Iron Saturation 12 % (15-34) Ferritin 147 ng/mL (8-252) Vitamin B12 Level 750 pg/mL (247-911) Serum Folate 10.09 ng/ml (3.2-20.0) Assessment and Plan Assessmemt and Plan Problems Medical Problems: (1) Acute sepsis Status: Acute (2) Altered mental status Status: Acute (3) Fever Status: Acute (4) Tachycardia Status: Acute (5) Urinary tract infection Status: Acute Comment Review of Relevant I have reviewed the following items marilu (where applicable) has been applied. Labs Laboratory Tests Test 02/19/18 19:30 02/19/18 19:45 02/19/18 23:05 02/19/18 23:29 Urine Collection Type U cath Urine Color Yellow Urine Clarity Turbid Urine pH 8.5 Urine Specific Gurley 1.015 Urine Protein 100 mg/dL (NEG-TRACE) Urine Glucose (UA) Negative mg/dL (NEG) Urine Ketones (Stick) Negative mg/dL (NEG) Urine Blood Moderate (NEG) Urine Nitrite Negative (NEG) Urine Bilirubin Negative (NEG) Urine Urobilinogen Dipstick 0.2 mg/dL (0.2 mg/dL) Urine Leukocyte Esterase Large (NEG) Urine RBC 3-5 /HPF (0-2) Urine WBC >40 /HPF (0-4) Urine Squamous Epithelial Cells Few /LPF Urine Transitional Epithelial Cells Occ /LPF Urine Bacteria Many /HPF (0-FEW) Urine Mucus Marked /LPF White Blood Count 19.5 x10^3/uL (4.0-11.0) Red Blood Count 3.22 x10^6/uL (3.50-5.40) Hemoglobin 10.2 g/dL (12.0-15.5) Hematocrit 30.7 % (36.0-47.0) Mean Corpuscular Volume 95 fL (79-100) Mean Corpuscular Hemoglobin 32 pg (25-35) Mean Corpuscular Hemoglobin Concent 33 g/dL (31-37) Red Cell Distribution Width 13.7 % (11.5-14.5) Platelet Count 424 x10^3/uL (140-400) Neutrophils (%) (Auto) 87 % (31-73) Lymphocytes (%) (Auto) 5 % (24-48) Monocytes (%) (Auto) 7 % (0-9) Eosinophils (%) (Auto) 0 % (0-3) Basophils (%) (Auto) 0 % (0-3) Neutrophils # (Auto) 17.0 x10^3uL (1.8-7.7) Lymphocytes # (Auto) 0.9 x10^3/uL (1.0-4.8) Monocytes # (Auto) 1.4 x10^3/uL (0.0-1.1) Eosinophils # (Auto) 0.0 x10^3/uL (0.0-0.7) Basophils # (Auto) 0.1 x10^3/uL (0.0-0.2) Segmented Neutrophils % 82 % (35-66) Band Neutrophils % 1 % (0-9) Lymphocytes % 8 % (24-48) Monocytes % 8 % (0-10) Basophils % 1 % (0-3) Platelet Estimate Adequate (ADEQUATE) Sodium Level 137 mmol/L (136-145) Potassium Level 4.1 mmol/L (3.5-5.1) Chloride Level 100 mmol/L (98-107) Carbon Dioxide Level 24 mmol/L (21-32) Anion Gap 13 (6-14) Blood Urea Nitrogen 31 mg/dL (7-20) Creatinine 2.0 mg/dL (0.6-1.0) Estimated GFR (Cockcroft-Gault) 23.5 BUN/Creatinine Ratio 16 (6-20) Glucose Level 171 mg/dL (70-99) Lactic Acid Level 3.0 mmol/L (0.4-2.0) 1.0 mmol/L (0.4-2.0) Calcium Level 9.6 mg/dL (8.5-10.1) Magnesium Level 2.3 mg/dL (1.8-2.4) Total Bilirubin 0.2 mg/dL (0.2-1.0) Aspartate Amino Transf (AST/SGOT) 14 U/L (15-37) Alanine Aminotransferase (ALT/SGPT) 16 U/L (14-59) Alkaline Phosphatase 95 U/L (46-116) Troponin I Quantitative < 0.017 ng/mL (0.000-0.055) Total Protein 9.4 g/dL (6.4-8.2) Albumin 2.7 g/dL (3.4-5.0) Albumin/Globulin Ratio 0.4 (1.0-1.7) Procalcitonin 0.36 ng/mL (0.00-0.10) Nasal Screen MRSA (PCR) Negative (Negative) Test 02/20/18 03:56 02/21/18 09:30 White Blood Count 14.2 x10^3/uL (4.0-11.0) 10.7 x10^3/uL (4.0-11.0) Red Blood Count 2.43 x10^6/uL (3.50-5.40) 2.69 x10^6/uL (3.50-5.40) Hemoglobin 7.7 g/dL (12.0-15.5) 8.7 g/dL (12.0-15.5) Hematocrit 23.2 % (36.0-47.0) 25.8 % (36.0-47.0) Mean Corpuscular Volume 95 fL (79-100) 96 fL (79-100) Mean Corpuscular Hemoglobin 32 pg (25-35) 32 pg (25-35) Mean Corpuscular Hemoglobin Concent 33 g/dL (31-37) 34 g/dL (31-37) Red Cell Distribution Width 13.6 % (11.5-14.5) 14.0 % (11.5-14.5) Platelet Count 323 x10^3/uL (140-400) 333 x10^3/uL (140-400) Neutrophils (%) (Auto) 80 % (31-73) 83 % (31-73) Lymphocytes (%) (Auto) 9 % (24-48) 9 % (24-48) Monocytes (%) (Auto) 10 % (0-9) 7 % (0-9) Eosinophils (%) (Auto) 0 % (0-3) 1 % (0-3) Basophils (%) (Auto) 1 % (0-3) 1 % (0-3) Neutrophils # (Auto) 11.4 x10^3uL (1.8-7.7) 8.9 x10^3uL (1.8-7.7) Lymphocytes # (Auto) 1.3 x10^3/uL (1.0-4.8) 0.9 x10^3/uL (1.0-4.8) Monocytes # (Auto) 1.4 x10^3/uL (0.0-1.1) 0.7 x10^3/uL (0.0-1.1) Eosinophils # (Auto) 0.1 x10^3/uL (0.0-0.7) 0.1 x10^3/uL (0.0-0.7) Basophils # (Auto) 0.1 x10^3/uL (0.0-0.2) 0.1 x10^3/uL (0.0-0.2) Sodium Level 139 mmol/L (136-145) 136 mmol/L (136-145) Potassium Level 3.6 mmol/L (3.5-5.1) 3.4 mmol/L (3.5-5.1) Chloride Level 107 mmol/L (98-107) 106 mmol/L (98-107) Carbon Dioxide Level 24 mmol/L (21-32) 22 mmol/L (21-32) Anion Gap 8 (6-14) 8 (6-14) Blood Urea Nitrogen 28 mg/dL (7-20) 19 mg/dL (7-20) Creatinine 1.8 mg/dL (0.6-1.0) 1.7 mg/dL (0.6-1.0) Estimated GFR (Cockcroft-Gault) 26.6 28.4 Glucose Level 101 mg/dL (70-99) 171 mg/dL (70-99) Lactic Acid Level 1.0 mmol/L (0.4-2.0) Calcium Level 7.8 mg/dL (8.5-10.1) 7.9 mg/dL (8.5-10.1) Iron Level 22 ug/dL (50-170) Total Iron Binding Capacity 185 ug/dL (250-450) Iron Saturation 12 % (15-34) Ferritin 147 ng/mL (8-252) Vitamin B12 Level 750 pg/mL (247-911) Serum Folate 10.09 ng/ml (3.2-20.0) Laboratory Tests Test 02/21/18 09:30 White Blood Count 10.7 x10^3/uL (4.0-11.0) Red Blood Count 2.69 x10^6/uL (3.50-5.40) Hemoglobin 8.7 g/dL (12.0-15.5) Hematocrit 25.8 % (36.0-47.0) Mean Corpuscular Volume 96 fL (79-100) Mean Corpuscular Hemoglobin 32 pg (25-35) Mean Corpuscular Hemoglobin Concent 34 g/dL (31-37) Red Cell Distribution Width 14.0 % (11.5-14.5) Platelet Count 333 x10^3/uL (140-400) Neutrophils (%) (Auto) 83 % (31-73) Lymphocytes (%) (Auto) 9 % (24-48) Monocytes (%) (Auto) 7 % (0-9) Eosinophils (%) (Auto) 1 % (0-3) Basophils (%) (Auto) 1 % (0-3) Neutrophils # (Auto) 8.9 x10^3uL (1.8-7.7) Lymphocytes # (Auto) 0.9 x10^3/uL (1.0-4.8) Monocytes # (Auto) 0.7 x10^3/uL (0.0-1.1) Eosinophils # (Auto) 0.1 x10^3/uL (0.0-0.7) Basophils # (Auto) 0.1 x10^3/uL (0.0-0.2) Sodium Level 136 mmol/L (136-145) Potassium Level 3.4 mmol/L (3.5-5.1) Chloride Level 106 mmol/L (98-107) Carbon Dioxide Level 22 mmol/L (21-32) Anion Gap 8 (6-14) Blood Urea Nitrogen 19 mg/dL (7-20) Creatinine 1.7 mg/dL (0.6-1.0) Estimated GFR (Cockcroft-Gault) 28.4 Glucose Level 171 mg/dL (70-99) Calcium Level 7.9 mg/dL (8.5-10.1) Iron Level 22 ug/dL (50-170) Total Iron Binding Capacity 185 ug/dL (250-450) Iron Saturation 12 % (15-34) Ferritin 147 ng/mL (8-252) Vitamin B12 Level 750 pg/mL (247-911) Serum Folate 10.09 ng/ml (3.2-20.0) Microbiology 02/19/18 Blood Culture - Preliminary, Resulted NO GROWTH AFTER 1 DAY Medications Current Medications Sodium Chloride 1,000 ml @ 1,650 mls/hr Q37M IV Last administered on 02/19/18at 20:25; Start 02/19/18 at 19:57; Stop 02/19/18 at 20:56; Status DC Sodium Chloride 500 ml @ 1,000 mls/hr PRN Q30MIN PRN IV SEE COMMENTS; Start at 20:00 Piperacillin Sod/ Tazobactam Sod 4.5 gm/Sodium Chloride 100 ml @ 200 mls/hr Q6HRS IV ; Start 02/20/18 at 00:00; Stop 02/20/18 at 00:00; Status DC Vancomycin HCl (Vanco Per Pharmacy) 1 each PRN DAILY PRN MC SEE COMMENTS Last administered on 02/20/18at 00:57; Start 02/19/18 at 20:00; Stop 02/20/18 at 09:19; Status DC Acetaminophen (Tylenol Supp) 650 mg 1X ONCE [place] Last administered on 02/19/18at 20:30; Start 02/19/18 at 20:30; Stop 02/19/18 at 20:31; Status DC Vancomycin HCl 1.25 gm/Sodium Chloride 250 ml @ 166.667 mls/hr 1X ONCE IV Last administered on 02/19/18at 20:55; Start 02/19/18 at 21:00; Stop 02/19/18 at 22: 29; Status DC Piperacillin Sod/ Tazobactam Sod 3.375 gm/Sodium Chloride 50 ml @ 100 mls/hr 1X ONCE IV Last administered on 02/19/18at 20:25; Start 02/19/18 at 20:30; Stop 02/19/18 at 20:59; Status DC Ondansetron HCl (Zofran) 4 mg PRN Q8HRS PRN IV NAUSEA/VOMITING; Start 02/19/18 at 21:30; Stop 02/20/18 at 11:09; Status DC Morphine Sulfate (Morphine Sulfate) 4 mg PRN Q2HR PRN IV PAIN; Start 02/19/18 at 21:30; Stop 02/20/18 at 21:29; Status DC Acetaminophen (Tylenol) 650 mg PRN Q4HRS PRN PO FEVER; Start 02/19/18 at 21:30; Stop 02/20/18 at 11:05; Status DC Sodium Chloride 1,000 ml @ 75 mls/hr 1X ONCE IV Last administered on at 00:20; Start 02/19/18 at 21:30; Stop 02/20/18 at 10:49; Status DC Vancomycin HCl (Vancomycin Random Level) 1 each 1X ONCE MC ; Start 02/21/18 at 21:00; Stop 02/21/18 at 21:00; Status DC Piperacillin Sod/ Tazobactam Sod 2.25 gm/Sodium Chloride 50 ml @ 100 mls/hr Q6HRS IV Last administered on 02/21/18at 12:38; Start 02/20/18 at 09:30 Linezolid/Dextrose 300 ml @ 300 mls/hr Q12HR IV Last administered on 02/21/18at 08:58; Start 02/20/18 at 10:00 Lactobacillus Rhamnosus (Culturelle) 1 cap BID PO Last administered on at 08:58; Start 02/20/18 at 21:00 Acetaminophen (Tylenol) 650 mg PRN Q4HRS PRN PO FEVER/HEADACHE; Start 02/20/18 at 11:00; Stop 02/20/18 at 11:05; Status DC Cyanocobalamin (Vitamin B-12) 1,000 mcg DAILY08 PO Last administered on at 08:58; Start 02/20/18 at 11:30 Polyethylene Glycol (miraLAX PACKET) 17 gm PRN DAILY PRN PO CONSTIPATION 1ST CHOICE; Start 02/21/18 at 09:00 Venlafaxine HCl (Effexor) 50 mg TID PO Last administered on 02/21/18at 08:58; Start 02/20/18 at 14:00 Multivitamins (Thera M Plus) 1 tab DAILY PO Last administered on 02/21/18at 08:58 ; Start 02/20/18 at 11:30 Acetaminophen (Tylenol) 650 mg PRN Q6HRS PRN PO FEVER/HEADACHE; Start 02/20/18 at 11:00 Ondansetron HCl (Zofran) 4 mg PRN Q6HRS PRN IV NAUSEA/VOMITING 1ST CHOICE; Start 02/20/18 at 11:00 Morphine Sulfate (Morphine Sulfate) 2 mg PRN Q2HR PRN IV MODERATE TO SEVERE PAIN; Start 02/20/18 at 11:00 Tramadol HCl (Ultram) 50 mg PRN Q6HRS PRN PO MILD TO MODERATE PAIN; Start at 11:00 Docusate Sodium (Colace) 100 mg PRN DAILY PRN PO HARD STOOLS; Start 02/20/18 at 11:00 Heparin Sodium (Porcine) (Heparin Sq) 5,000 unit Q8HRS SQ Last administered on 02/20/18at 21:41; Start 02/20/18 at 14:00 Sodium Chloride 1,000 ml @ 75 mls/hr Q18M96P IV Last administered on 02/21/18at 02:30; Start 02/20/18 at 11:00 Potassium Chloride (KCl Oral Soln) 40 meq 1X ONCE PO Last administered on at 12:37; Start 02/21/18 at 11:45; Stop 02/21/18 at 11:46; Status DC Iron Sucrose 200 mg/Sodium Chloride 110 ml @ 55 mls/hr DAILY IV ; Start at 12:30; Stop 02/25/18 at 12:29 Active Scripts Active Reported Alum-Mag Hydroxide-Simeth Liq (Mag Hydrox/Al Hydrox/Simeth) 360 Ml Oral.susp 30 Ml PO PRN Q2HRS PRN Vitamin B-12 (Cyanocobalamin (Vitamin B-12)) 1,000 Mcg Tablet 1,000 Mcg PO DAILY08 Ondansetron Hcl 4 Mg Tablet 4 Mg PO PRN Q6HRS PRN Venlafaxine Hcl 75 Mg Tablet 150 Mg PO BID Nystatin 100,000 Unit/1 Ml Oral.susp 100,000 Unit TP BID Robitussin Cough-Chest Dm Liq (Guaifenesin/Dextromethorphan) 118 Ml Liquid 118 Ml PO PRN Q4HRS PRN Miralax (Polyethylene Glycol 3350) 17 Gm Powd.pack 1 Packet PO PRN DAILY PRN Dulcolax (Bisacodyl) 5 Mg Tablet.dr 10 Mg [place] PRN DAILY PRN [Multi-Vitamins] 1 Tab PO DAILY Voltaren (Diclofenac Sodium) 100 Gm Gel..gram. 1 Gm TP Tylenol (Acetaminophen) 325 Mg Tablet 650 Mg PO PRN Q4HRS PRN Tramadol Hcl 50 Mg Tablet 1 Tab PO DAILY16 Tylenol (Acetaminophen) 325 Mg Tablet 650 Mg [place] PRN Q4HRS PRN Vitals/I & O Vital Sign - Last 24 Hours 02/20/18 02/20/18 02/20/18 02/20/18 15:17 19:43 20:00 23:20 Temp 97.7 98.5 98.2 97.7 98.5 98.2 Pulse 89 92 89 Resp 16 16 16 B/P (MAP) 111/48 (69) 118/58 (78) 102/42 (62) Pulse Ox 99 99 94 O2 Delivery Room Air Room Air Room Air Room Air 02/21/18 02/21/18 02/21/18 02/21/18 03:15 07:48 08:00 11:15 Temp 97.9 97.7 98.1 97.9 97.7 98.1 Pulse 89 90 99 Resp 16 24 22 B/P (MAP) 106/54 (71) 116/56 (76) 102/47 (65) Pulse Ox 97 97 98 O2 Delivery Room Air Room Air Room Air Room Air Intake and Output 02/20/18 02/20/18 02/21/18 15:00 23:00 07:00 Intake Total 650 ml 100 ml Balance 650 ml 100 ml Nutrition Consultation Dietary Evaluation: Recommendations by RD: Increase Calorie Intake, Protein supplementation Comments: ensure enlive tid Expected Outcomes/Goals: to meet > 75% est nutr needs Malnutrition Findings: Body Fat Depletion (Non Severe: Mild Depletion Weight Status: Underweight SANJAY SHIN MD Feb 21, 2018 13:50
[2018-02-21] MEDS: IRON SUCROSE COMPLEX 200 MG in IV NORMAL SALINE 100ML 100 ML IV SCH (14:26)
[2018-02-21 15:08] VITALS: BP 122/57
[2018-02-21] MEDS: ACETAMINOPHEN 325 MG TABLET. PO PRN (15:46)
[2018-02-21 18:10] LABS: FECAL OB PT NEGATIVE (NEG)
[2018-02-21 19:20] VITALS: BP 121/66
[2018-02-21] MEDS ORDERED: VANCOMYCIN RANDOM LEVEL. MC ONE (21:00)
[2018-02-21] MEDS: traMADol 50 MG TABLET PO PRN (21:55)
[2018-02-21 23:20] VITALS: BP 120/74
[2018-02-22 03:20] VITALS: BP 112/63
[2018-02-22] MEDS: traMADol 50 MG TABLET PO PRN ×2 (03:58→21:32)
[2018-02-22 04:36] LABS: BASO # 0.1 x10^3/uL (0.0-0.2); BASO % 1 % (0-3); EOS # 0.3 x10^3/uL (0.0-0.7); EOS % 3 % (0-3); HEMATOCRIT 29.5 % (36.0-47.0); HEMOGLOBIN 9.2 g/dL (12.0-15.5); LYMPH # 0.9 x10^3/uL (1.0-4.8); LYMPH % 9 % (24-48); MEAN CORPUSCULAR HEMOGLOBIN 32 pg (25-35); MEAN CORPUSCULAR HGB CONC 31 g/dL (31-37); MEAN CORPUSCULAR VOLUME 104 fL (79-100); MONO % 10 % (0-9); NEUT # 8.3 x10^3uL (1.8-7.7); NEUT % 79 % (31-73); PLATELET COUNT 315 x10^3/uL (140-400); RED BLOOD COUNT 2.84 x10^6/uL (3.50-5.40); WHITE BLOOD COUNT 10.5 x10^3/uL (4.0-11.0)
[2018-02-22 05:02] LABS: CALCIUM 7.7 mg/dL (8.5-10.1); CREATININE 1.3 mg/dL (0.6-1.0); GFR 38.7; POTASSIUM 4.3 mmol/L (3.5-5.1)
[2018-02-22] MEDS: PIPERACILLIN/TAZOBACTAM 2.25 GM in IV NORMAL SALINE 50ML 50 ML IV SCH ×4 (05:43→23:18)
[2018-02-22] MEDS: HEPARIN PF for SUB-Q USE 5,000 UNIT/0.5 ML VIAL. SQ SCH ×3 (05:48→21:28)
[2018-02-22 07:00] VITALS: BP 133/75
[2018-02-22] MEDS: IV NORMAL SALINE 1000ML BAG 1,000 ML IV SCH (08:50)
[2018-02-22] MEDS: IRON SUCROSE COMPLEX 200 MG in IV NORMAL SALINE 100ML 100 ML IV SCH (08:52)
--- NOTE | 2018-02-22 10:30 | PDOC ---
Infectious Disease Note Subjective Subjective States ok Denies pain/F/C/S/SOA/itch ROS ROS ? reliability Vital Sign Vital Signs Vital Signs Date Time Temp Pulse Resp B/P (MAP) Pulse Ox O2 Delivery O2 Flow Rate FiO2 02/22/18 07:00 97.9 93 24 133/75 (94) 93 Room Air 97.9 Physical Exam PHYSICAL EXAM CONSTITUTIONAL: She is very alert. She smiles. She has normal conjunctivae. Mouth is dry. but opened mouth NECK: Without JVD. LUNGS: Clear to auscultation. HEART: S1, S2. ABDOMEN: Soft, nontender. EXTREMITIES: No clubbing, cyanosis or edema SKIN: Warm to touch without signs of rash. NEUROLOGIC: She is alert and did focus. Labs Lab Laboratory Tests Test 02/21/18 17:34 02/22/18 04:20 Stool Occult Blood Negative (NEG) White Blood Count 10.5 x10^3/uL (4.0-11.0) Red Blood Count 2.84 x10^6/uL (3.50-5.40) Hemoglobin 9.2 g/dL (12.0-15.5) Hematocrit 29.5 % (36.0-47.0) Mean Corpuscular Volume 104 fL (79-100) Mean Corpuscular Hemoglobin 32 pg (25-35) Mean Corpuscular Hemoglobin Concent 31 g/dL (31-37) Red Cell Distribution Width 15.0 % (11.5-14.5) Platelet Count 315 x10^3/uL (140-400) Neutrophils (%) (Auto) 79 % (31-73) Lymphocytes (%) (Auto) 9 % (24-48) Monocytes (%) (Auto) 10 % (0-9) Eosinophils (%) (Auto) 3 % (0-3) Basophils (%) (Auto) 1 % (0-3) Neutrophils # (Auto) 8.3 x10^3uL (1.8-7.7) Lymphocytes # (Auto) 0.9 x10^3/uL (1.0-4.8) Monocytes # (Auto) 1.0 x10^3/uL (0.0-1.1) Eosinophils # (Auto) 0.3 x10^3/uL (0.0-0.7) Basophils # (Auto) 0.1 x10^3/uL (0.0-0.2) Sodium Level 140 mmol/L (136-145) Potassium Level 4.3 mmol/L (3.5-5.1) Chloride Level 109 mmol/L (98-107) Carbon Dioxide Level 18 mmol/L (21-32) Anion Gap 13 (6-14) Blood Urea Nitrogen 17 mg/dL (7-20) Creatinine 1.3 mg/dL (0.6-1.0) Estimated GFR (Cockcroft-Gault) 38.7 Glucose Level 97 mg/dL (70-99) Calcium Level 7.7 mg/dL (8.5-10.1) Micro Microbiology 02/19/18 Blood Culture - Preliminary, Resulted NO GROWTH AFTER 1 DAY Objective Assessment fever - better Encephalopathy - better Abx allergy - Levoflox - mental status change UTI- POA - cult pending JINNY Interstitial opacity - repeat without acute changes XRAY this am without acute finding by my eye this am Anemia - better Plan Plan of Care Cont Zosyn/Zyvox F/u labs and cults - awaiting Urine cult D/w nursing MARIFER MILES MD Feb 22, 2018 10:30
[2018-02-22 11:00] VITALS: BP 139/72
[2018-02-22] MEDS ORDERED: ALBUTEROL SULFATE 2.5 MG/3 ML NEBU. NEB PRN (11:15)
--- NOTE | 2018-02-22 11:19 | RAD ---
EXAM: PORTABLE CHEST 1V DATE: 02/22/2018 10:03 AM INDICATION: SOA -shortness of air COMPARISON: No Prior FINDINGS: The heart is not enlarged. Mediastinal and hilar contours are stable. Atherosclerotic calcifications of the aorta are seen. No focal parenchymal airspace opacity. Blunting of the bilateral costophrenic angle likely trace-small pleural effusions. No pneumothorax. Biapical pleural/parenchymal scarring/thickening is again seen. IMPRESSION: 1. Trace-small bilateral pleural effusions. 2. No lobar consolidation. Electronically signed by: Matthew Delvalle MD (02/22/2018 11:16 AM) [id number]
[2018-02-22] MEDS: IPRATRPIUM/ALBUTEROL 0.5/2.5MG 3 ML NEBU. NEB SCH ×3 (11:38→19:25)
[2018-02-22] MEDS: LACTOBACILLUS RHAMNOSUS GG 1 CAPSULE. PO SCH ×2 (11:47→21:18)
[2018-02-22] MEDS: CYANOCOBALAMIN (VITAMIN B-12) 1,000 MCG TABLET. PO SCH (11:48)
[2018-02-22] MEDS: VENLAFAXINE 50 MG TABLET. PO SCH ×3 (11:48→21:18)
[2018-02-22] MEDS: MULTIVITAMIN with MINERAL TABLET. PO SCH (11:48)
--- NOTE | 2018-02-22 12:55 | PDOC ---
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 History of Present Illness History of Present Illness ROS: no fever, chills, sob or chest pain this is likely her baseline not talking to me or follow commands, talks a little bit to nurse. T 100.2 some chest congestion cr down to 1.3 low po intake Vitals Vitals Vital Signs Date Time Temp Pulse Resp B/P (MAP) Pulse Ox O2 Delivery O2 Flow Rate FiO2 02/22/18 11:39 98 Room Air 02/22/18 11:00 98.1 95 20 139/72 (94) 98.1 Physical Exam Physical Exam CONSTITUTIONAL: She is very alert. She smiles. She has normal conjunctivae. Mouth is dry. but opened mouth NECK: Without JVD. LUNGS: bl mild crackles and wheezing. HEART: S1, S2. ABDOMEN: Soft, nontender. EXTREMITIES: No clubbing, cyanosis or edema SKIN: Warm to touch without signs of rash. NEUROLOGIC: She is alert and did focus. Lungs: Crackles Labs LABS Laboratory Tests Test 02/21/18 17:34 02/22/18 04:20 Stool Occult Blood Negative (NEG) White Blood Count 10.5 x10^3/uL (4.0-11.0) Red Blood Count 2.84 x10^6/uL (3.50-5.40) Hemoglobin 9.2 g/dL (12.0-15.5) Hematocrit 29.5 % (36.0-47.0) Mean Corpuscular Volume 104 fL (79-100) Mean Corpuscular Hemoglobin 32 pg (25-35) Mean Corpuscular Hemoglobin Concent 31 g/dL (31-37) Red Cell Distribution Width 15.0 % (11.5-14.5) Platelet Count 315 x10^3/uL (140-400) Neutrophils (%) (Auto) 79 % (31-73) Lymphocytes (%) (Auto) 9 % (24-48) Monocytes (%) (Auto) 10 % (0-9) Eosinophils (%) (Auto) 3 % (0-3) Basophils (%) (Auto) 1 % (0-3) Neutrophils # (Auto) 8.3 x10^3uL (1.8-7.7) Lymphocytes # (Auto) 0.9 x10^3/uL (1.0-4.8) Monocytes # (Auto) 1.0 x10^3/uL (0.0-1.1) Eosinophils # (Auto) 0.3 x10^3/uL (0.0-0.7) Basophils # (Auto) 0.1 x10^3/uL (0.0-0.2) Sodium Level 140 mmol/L (136-145) Potassium Level 4.3 mmol/L (3.5-5.1) Chloride Level 109 mmol/L (98-107) Carbon Dioxide Level 18 mmol/L (21-32) Anion Gap 13 (6-14) Blood Urea Nitrogen 17 mg/dL (7-20) Creatinine 1.3 mg/dL (0.6-1.0) Estimated GFR (Cockcroft-Gault) 38.7 Glucose Level 97 mg/dL (70-99) Calcium Level 7.7 mg/dL (8.5-10.1) Assessment and Plan Assessmemt and Plan Problems Medical Problems: (1) Acute sepsis Status: Acute (2) Altered mental status Status: Acute (3) Fever Status: Acute (4) Tachycardia Status: Acute (5) Urinary tract infection Status: Acute Comment Review of Relevant I have reviewed the following items marilu (where applicable) has been applied. Labs Laboratory Tests Test 02/21/18 09:30 02/21/18 17:34 02/22/18 04:20 White Blood Count 10.7 x10^3/uL (4.0-11.0) 10.5 x10^3/uL (4.0-11.0) Red Blood Count 2.69 x10^6/uL (3.50-5.40) 2.84 x10^6/uL (3.50-5.40) Hemoglobin 8.7 g/dL (12.0-15.5) 9.2 g/dL (12.0-15.5) Hematocrit 25.8 % (36.0-47.0) 29.5 % (36.0-47.0) Mean Corpuscular Volume 96 fL (79-100) 104 fL (79-100) Mean Corpuscular Hemoglobin 32 pg (25-35) 32 pg (25-35) Mean Corpuscular Hemoglobin Concent 34 g/dL (31-37) 31 g/dL (31-37) Red Cell Distribution Width 14.0 % (11.5-14.5) 15.0 % (11.5-14.5) Platelet Count 333 x10^3/uL (140-400) 315 x10^3/uL (140-400) Neutrophils (%) (Auto) 83 % (31-73) 79 % (31-73) Lymphocytes (%) (Auto) 9 % (24-48) 9 % (24-48) Monocytes (%) (Auto) 7 % (0-9) 10 % (0-9) Eosinophils (%) (Auto) 1 % (0-3) 3 % (0-3) Basophils (%) (Auto) 1 % (0-3) 1 % (0-3) Neutrophils # (Auto) 8.9 x10^3uL (1.8-7.7) 8.3 x10^3uL (1.8-7.7) Lymphocytes # (Auto) 0.9 x10^3/uL (1.0-4.8) 0.9 x10^3/uL (1.0-4.8) Monocytes # (Auto) 0.7 x10^3/uL (0.0-1.1) 1.0 x10^3/uL (0.0-1.1) Eosinophils # (Auto) 0.1 x10^3/uL (0.0-0.7) 0.3 x10^3/uL (0.0-0.7) Basophils # (Auto) 0.1 x10^3/uL (0.0-0.2) 0.1 x10^3/uL (0.0-0.2) Sodium Level 136 mmol/L (136-145) 140 mmol/L (136-145) Potassium Level 3.4 mmol/L (3.5-5.1) 4.3 mmol/L (3.5-5.1) Chloride Level 106 mmol/L (98-107) 109 mmol/L (98-107) Carbon Dioxide Level 22 mmol/L (21-32) 18 mmol/L (21-32) Anion Gap 8 (6-14) 13 (6-14) Blood Urea Nitrogen 19 mg/dL (7-20) 17 mg/dL (7-20) Creatinine 1.7 mg/dL (0.6-1.0) 1.3 mg/dL (0.6-1.0) Estimated GFR (Cockcroft-Gault) 28.4 38.7 Glucose Level 171 mg/dL (70-99) 97 mg/dL (70-99) Calcium Level 7.9 mg/dL (8.5-10.1) 7.7 mg/dL (8.5-10.1) Iron Level 22 ug/dL (50-170) Total Iron Binding Capacity 185 ug/dL (250-450) Iron Saturation 12 % (15-34) Ferritin 147 ng/mL (8-252) Vitamin B12 Level 750 pg/mL (247-911) Serum Folate 10.09 ng/ml (3.2-20.0) Stool Occult Blood Negative (NEG) Laboratory Tests Test 02/21/18 17:34 02/22/18 04:20 Stool Occult Blood Negative (NEG) White Blood Count 10.5 x10^3/uL (4.0-11.0) Red Blood Count 2.84 x10^6/uL (3.50-5.40) Hemoglobin 9.2 g/dL (12.0-15.5) Hematocrit 29.5 % (36.0-47.0) Mean Corpuscular Volume 104 fL (79-100) Mean Corpuscular Hemoglobin 32 pg (25-35) Mean Corpuscular Hemoglobin Concent 31 g/dL (31-37) Red Cell Distribution Width 15.0 % (11.5-14.5) Platelet Count 315 x10^3/uL (140-400) Neutrophils (%) (Auto) 79 % (31-73) Lymphocytes (%) (Auto) 9 % (24-48) Monocytes (%) (Auto) 10 % (0-9) Eosinophils (%) (Auto) 3 % (0-3) Basophils (%) (Auto) 1 % (0-3) Neutrophils # (Auto) 8.3 x10^3uL (1.8-7.7) Lymphocytes # (Auto) 0.9 x10^3/uL (1.0-4.8) Monocytes # (Auto) 1.0 x10^3/uL (0.0-1.1) Eosinophils # (Auto) 0.3 x10^3/uL (0.0-0.7) Basophils # (Auto) 0.1 x10^3/uL (0.0-0.2) Sodium Level 140 mmol/L (136-145) Potassium Level 4.3 mmol/L (3.5-5.1) Chloride Level 109 mmol/L (98-107) Carbon Dioxide Level 18 mmol/L (21-32) Anion Gap 13 (6-14) Blood Urea Nitrogen 17 mg/dL (7-20) Creatinine 1.3 mg/dL (0.6-1.0) Estimated GFR (Cockcroft-Gault) 38.7 Glucose Level 97 mg/dL (70-99) Calcium Level 7.7 mg/dL (8.5-10.1) Microbiology 02/19/18 Blood Culture - Preliminary, Resulted NO GROWTH AFTER 2 DAYS Medications Current Medications Sodium Chloride 1,000 ml @ 1,650 mls/hr Q37M IV Last administered on 02/19/18at 20:25; Start 02/19/18 at 19:57; Stop 02/19/18 at 20:56; Status DC Sodium Chloride 500 ml @ 1,000 mls/hr PRN Q30MIN PRN IV SEE COMMENTS; Start at 20:00; Stop 02/21/18 at 14:35; Status DC Piperacillin Sod/ Tazobactam Sod 4.5 gm/Sodium Chloride 100 ml @ 200 mls/hr Q6HRS IV ; Start 02/20/18 at 00:00; Stop 02/20/18 at 00:00; Status DC Vancomycin HCl (Vanco Per Pharmacy) 1 each PRN DAILY PRN MC SEE COMMENTS Last administered on 02/20/18at 00:57; Start 02/19/18 at 20:00; Stop 02/20/18 at 09:19; Status DC Acetaminophen (Tylenol Supp) 650 mg 1X ONCE OH Last administered on 02/19/18at 20:30; Start 02/19/18 at 20:30; Stop 02/19/18 at 20:31; Status DC Vancomycin HCl 1.25 gm/Sodium Chloride 250 ml @ 166.667 mls/hr 1X ONCE IV Last administered on 02/19/18at 20:55; Start 02/19/18 at 21:00; Stop 02/19/18 at 22: 29; Status DC Piperacillin Sod/ Tazobactam Sod 3.375 gm/Sodium Chloride 50 ml @ 100 mls/hr 1X ONCE IV Last administered on 02/19/18at 20:25; Start 02/19/18 at 20:30; Stop 02/19/18 at 20:59; Status DC Ondansetron HCl (Zofran) 4 mg PRN Q8HRS PRN IV NAUSEA/VOMITING; Start 02/19/18 at 21:30; Stop 02/20/18 at 11:09; Status DC Morphine Sulfate (Morphine Sulfate) 4 mg PRN Q2HR PRN IV PAIN; Start 02/19/18 at 21:30; Stop 02/20/18 at 21:29; Status DC Acetaminophen (Tylenol) 650 mg PRN Q4HRS PRN PO FEVER; Start 02/19/18 at 21:30; Stop 02/20/18 at 11:05; Status DC Sodium Chloride 1,000 ml @ 75 mls/hr 1X ONCE IV Last administered on at 00:20; Start 02/19/18 at 21:30; Stop 02/20/18 at 10:49; Status DC Vancomycin HCl (Vancomycin Random Level) 1 each 1X ONCE MC ; Start 02/21/18 at 21:00; Stop 02/21/18 at 21:00; Status DC Piperacillin Sod/ Tazobactam Sod 2.25 gm/Sodium Chloride 50 ml @ 100 mls/hr Q6HRS IV Last administered on 02/22/18at 05:43; Start 02/20/18 at 09:30 Linezolid/Dextrose 300 ml @ 300 mls/hr Q12HR IV Last administered on 02/22/18at 08:52; Start 02/20/18 at 10:00 Lactobacillus Rhamnosus (Culturelle) 1 cap BID PO Last administered on at 11:47; Start 02/20/18 at 21:00 Acetaminophen (Tylenol) 650 mg PRN Q4HRS PRN PO FEVER/HEADACHE; Start 02/20/18 at 11:00; Stop 02/20/18 at 11:05; Status DC Cyanocobalamin (Vitamin B-12) 1,000 mcg DAILY08 PO Last administered on 11:48; Start 02/20/18 at 11:30 Polyethylene Glycol (miraLAX PACKET) 17 gm PRN DAILY PRN PO CONSTIPATION 1ST CHOICE; Start 02/21/18 at 09:00 Venlafaxine HCl (Effexor) 50 mg TID PO Last administered on 02/22/18 11:48; Start 02/20/18 at 14:00 Multivitamins (Thera M Plus) 1 tab DAILY PO Last administered on 02/22/18 11:48 ; Start 02/20/18 at 11:30 Acetaminophen (Tylenol) 650 mg PRN Q6HRS PRN PO FEVER/HEADACHE Last administered on 02/21/18at 15:46; Start 02/20/18 at 11:00 Ondansetron HCl (Zofran) 4 mg PRN Q6HRS PRN IV NAUSEA/VOMITING 1ST CHOICE; Start 02/20/18 at 11:00 Morphine Sulfate (Morphine Sulfate) 2 mg PRN Q2HR PRN IV MODERATE TO SEVERE PAIN; Start 02/20/18 at 11:00 Tramadol HCl (Ultram) 50 mg PRN Q6HRS PRN PO MILD TO MODERATE PAIN Last administered on 02/22/18at 03:58; Start 02/20/18 at 11:00 Docusate Sodium (Colace) 100 mg PRN DAILY PRN PO HARD STOOLS; Start 02/20/18 at 11:00 Heparin Sodium (Porcine) (Heparin Sq) 5,000 unit Q8HRS SQ Last administered on 02/22/18 05:48; Start 02/20/18 at 14:00 Sodium Chloride 1,000 ml @ 75 mls/hr [id number] IV Last administered on 02/22/18at 08:50; Start 02/20/18 at 11:00; Stop 02/22/18 at 11:05; Status DC Potassium Chloride (KCl Oral Soln) 40 meq 1X ONCE PO Last administered on at 12:37; Start 02/21/18 at 11:45; Stop 02/21/18 at 11:46; Status DC Iron Sucrose 200 mg/Sodium Chloride 110 ml @ 55 mls/hr DAILY IV Last administered on 02/22/18at 08:52; Start 02/21/18 at 12:30; Stop 02/25/18 at 12:29 Albuterol/ Ipratropium (Duoneb) 3 ml RTQID NEB Last administered on 02/22/18at 11 :38; Start 02/22/18 at 12:00 Albuterol Sulfate (Ventolin Neb Soln) 2.5 mg PRN Q4HRS PRN NEB SHORTNESS OF BREATH; Start 02/22/18 at 11:15 Active Scripts Active Reported Alum-Mag Hydroxide-Simeth Liq (Mag Hydrox/Al Hydrox/Simeth) 360 Ml Oral.susp 30 Ml PO PRN Q2HRS PRN Vitamin B-12 (Cyanocobalamin (Vitamin B-12)) 1,000 Mcg Tablet 1,000 Mcg PO DAILY08 Ondansetron Hcl 4 Mg Tablet 4 Mg PO PRN Q6HRS PRN Venlafaxine Hcl 75 Mg Tablet 150 Mg PO BID Nystatin 100,000 Unit/1 Ml Oral.susp 100,000 Unit TP BID Robitussin Cough-Chest Dm Liq (Guaifenesin/Dextromethorphan) 118 Ml Liquid 118 Ml PO PRN Q4HRS PRN Miralax (Polyethylene Glycol 3350) 17 Gm Powd.pack 1 Packet PO PRN DAILY PRN Dulcolax (Bisacodyl) 5 Mg Tablet.dr 10 Mg OH PRN DAILY PRN [Multi-Vitamins] 1 Tab PO DAILY Voltaren (Diclofenac Sodium) 100 Gm Gel..gram. 1 Gm TP Tylenol (Acetaminophen) 325 Mg Tablet 650 Mg PO PRN Q4HRS PRN Tramadol Hcl 50 Mg Tablet 1 Tab PO DAILY16 Tylenol (Acetaminophen) 325 Mg Tablet 650 Mg OH PRN Q4HRS PRN Vitals/I & O Vital Sign - Last 24 Hours 02/21/18 02/21/18 02/21/18 02/21/18 15:08 17:11 19:20 20:00 Temp 100.2 99.6 98.8 100.2 99.6 98.8 Pulse 107 95 Resp 20 32 B/P (MAP) 122/57 (78) 121/66 (84) Pulse Ox 97 95 O2 Delivery Room Air Room Air Room Air 02/21/18 02/21/18 02/22/18 02/22/18 21:55 23:20 03:20 03:58 Temp 99.4 99.5 99.4 99.5 Pulse 98 100 Resp 32 32 B/P (MAP) 120/74 (89) 112/63 (79) Pulse Ox 96 94 O2 Delivery Room Air Room Air Room Air Room Air 02/22/18 02/22/18 02/22/18 02/22/18 04:58 07:00 11:00 11:39 Temp 97.9 98.1 97.9 98.1 Pulse 93 95 Resp 24 20 B/P (MAP) 133/75 (94) 139/72 (94) Pulse Ox 93 98 98 O2 Delivery Room Air Room Air Room Air Room Air Intake and Output 02/21/18 02/21/18 02/22/18 15:00 23:00 07:00 Intake Total 200 ml 50 ml Balance 200 ml 50 ml Nutrition Consultation Dietary Evaluation: Recommendations by RD: Increase Calorie Intake, Protein supplementation, PPN/ TPN Comments: pt coughing, consider PPN for short term nutrition Resume diet per MATERIAL MANAGER if able Expected Outcomes/Goals: to meet > 75% est nutr needs- goal ongoing Malnutrition Findings: Body Fat Depletion (Non Severe: Mild Depletion Weight Status: Underweight SANJAY SHIN MD Feb 22, 2018 12:54
[2018-02-22 15:00] VITALS: BP 131/54
[2018-02-22 19:44] VITALS: BP 146/68
[2018-02-22] MEDS: ACETAMINOPHEN 325 MG TABLET. PO PRN (23:17)
[2018-02-22 23:26] VITALS: BP 112/49
[2018-02-23 03:32] VITALS: BP 116/62
[2018-02-23 04:24] LABS: BASO # 0.1 x10^3/uL (0.0-0.2); BASO % 1 % (0-3); EOS # 0.1 x10^3/uL (0.0-0.7); EOS % 1 % (0-3); HEMATOCRIT 27.1 % (36.0-47.0); HEMOGLOBIN 8.9 g/dL (12.0-15.5); LYMPH # 1.3 x10^3/uL (1.0-4.8); LYMPH % 11 % (24-48); MEAN CORPUSCULAR HEMOGLOBIN 32 pg (25-35); MEAN CORPUSCULAR HGB CONC 33 g/dL (31-37); MEAN CORPUSCULAR VOLUME 96 fL (79-100); MONO # 1.1 x10^3/uL (0.0-1.1); MONO % 9 % (0-9); NEUT # 8.9 x10^3uL (1.8-7.7); NEUT % 78 % (31-73); PLATELET COUNT 315 x10^3/uL (140-400); RED BLOOD COUNT 2.81 x10^6/uL (3.50-5.40); RED CELL DISTRIBUTION WIDTH 13.8 % (11.5-14.5); WHITE BLOOD COUNT 11.5 x10^3/uL (4.0-11.0)
[2018-02-23 04:45] LABS: CALCIUM 8.5 mg/dL (8.5-10.1); CREATININE 1.6 mg/dL (0.6-1.0); GFR 30.4
[2018-02-23] MEDS: PIPERACILLIN/TAZOBACTAM 2.25 GM in IV NORMAL SALINE 50ML 50 ML IV SCH (06:15)
[2018-02-23] MEDS: HEPARIN PF for SUB-Q USE 5,000 UNIT/0.5 ML VIAL. SQ SCH ×3 (06:28→22:24)
[2018-02-23 07:14] VITALS: BP 100/56
[2018-02-23] MEDS: IPRATRPIUM/ALBUTEROL 0.5/2.5MG 3 ML NEBU. NEB SCH ×4 (07:51→19:20)
[2018-02-23] MEDS: VENLAFAXINE 50 MG TABLET. PO SCH ×3 (08:36→20:48)
[2018-02-23] MEDS: MULTIVITAMIN with MINERAL TABLET. PO SCH (08:36)
[2018-02-23] MEDS: CYANOCOBALAMIN (VITAMIN B-12) 1,000 MCG TABLET. PO SCH (08:36)
[2018-02-23] MEDS: LACTOBACILLUS RHAMNOSUS GG 1 CAPSULE. PO SCH ×2 (08:36→20:48)
[2018-02-23] MEDS: ACETAMINOPHEN 325 MG TABLET. PO PRN (08:37)
--- NOTE | 2018-02-23 08:57 | PDOC ---
Infectious Disease Note Subjective Subjective Alert but not as responsive ROS ROS Not obtainable Vital Sign Vital Signs Vital Signs Date Time Temp Pulse Resp B/P (MAP) Pulse Ox O2 Delivery O2 Flow Rate FiO2 02/23/18 07:52 98 Room Air 02/23/18 07:14 97.5 73 20 100/56 (71) 97.5 Physical Exam PHYSICAL EXAM CONSTITUTIONAL: She is very alert. She has normal conjunctivae. Mouth is dry. but opened mouth NECK: Without JVD. LUNGS: coarse today HEART: S1, S2. ABDOMEN: Soft, nontender. EXTREMITIES: No clubbing, cyanosis or edema SKIN: Warm to touch without signs of rash. NEUROLOGIC: She is alert and did focus. Labs Lab Laboratory Tests Test 02/23/18 03:30 White Blood Count 11.5 x10^3/uL (4.0-11.0) Red Blood Count 2.81 x10^6/uL (3.50-5.40) Hemoglobin 8.9 g/dL (12.0-15.5) Hematocrit 27.1 % (36.0-47.0) Mean Corpuscular Volume 96 fL (79-100) Mean Corpuscular Hemoglobin 32 pg (25-35) Mean Corpuscular Hemoglobin Concent 33 g/dL (31-37) Red Cell Distribution Width 13.8 % (11.5-14.5) Platelet Count 315 x10^3/uL (140-400) Neutrophils (%) (Auto) 78 % (31-73) Lymphocytes (%) (Auto) 11 % (24-48) Monocytes (%) (Auto) 9 % (0-9) Eosinophils (%) (Auto) 1 % (0-3) Basophils (%) (Auto) 1 % (0-3) Neutrophils # (Auto) 8.9 x10^3uL (1.8-7.7) Lymphocytes # (Auto) 1.3 x10^3/uL (1.0-4.8) Monocytes # (Auto) 1.1 x10^3/uL (0.0-1.1) Eosinophils # (Auto) 0.1 x10^3/uL (0.0-0.7) Basophils # (Auto) 0.1 x10^3/uL (0.0-0.2) Sodium Level 140 mmol/L (136-145) Potassium Level 4.0 mmol/L (3.5-5.1) Chloride Level 106 mmol/L (98-107) Carbon Dioxide Level 22 mmol/L (21-32) Anion Gap 12 (6-14) Blood Urea Nitrogen 14 mg/dL (7-20) Creatinine 1.6 mg/dL (0.6-1.0) Estimated GFR (Cockcroft-Gault) 30.4 Glucose Level 104 mg/dL (70-99) Calcium Level 8.5 mg/dL (8.5-10.1) Micro Microbiology 02/19/18 Blood Culture - Preliminary, Resulted NO GROWTH AFTER 1 DAY Objective Assessment Leukocytosis Rhonchi - ? aspiration - although reviewed speech eval 02/20 fever - better Encephalopathy - better Abx allergy - Levoflox - mental status change UTI- POA - Proteus JINNY Interstitial opacity - repeat without acute changes XRAY this am without acute finding by my eye this am Anemia - better Plan Plan of Care Discont Zosyn Add meropenem and cont Zyvox F/u labs in am and cults - awaiting Urine cult sens May need Pulm eval Await Primary f/u Hold po for now D/w nursing MARIFER MILES MD Feb 23, 2018 08:57
[2018-02-23] MEDS: IRON SUCROSE COMPLEX 200 MG in IV NORMAL SALINE 100ML 100 ML IV SCH (09:38)
[2018-02-23 11:14] VITALS: BP 106/52
[2018-02-23] MEDS: MEROPENEM 500 MG in IV NORMAL SALINE 50ML 50 ML IV SCH ×3 (11:52→22:18)
[2018-02-23] MEDS: AMINO AC 3%/ELECTROLYTE/GLYCER 1,000 ML IV SCH (11:56)
[2018-02-23] MEDS ORDERED: FUROSEMIDE 20 MG/2 ML VIAL. IVP ONE (12:00)
--- NOTE | 2018-02-23 13:48 | PDOC ---
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 pt possible aspirated cont some home meds dvt, gi ppx labs tmr fu ucx, bcx replete K, venofer daily x5ds. pulm consult History of Present Illness History of Present Illness ROS: no fever, chills, sob or chest pain this is likely her baseline not talking to me or follow commands, talks a little bit to nurse. some chest congestion since 02/22. more sob as per nurse, pt looks calm when i saw her tho cr down to 1.3, up to 1.6 again, refuse to eat today low po intake Vitals Vitals Vital Signs Date Time Temp Pulse Resp B/P (MAP) Pulse Ox O2 Delivery O2 Flow Rate FiO2 02/23/18 11:36 Room Air 02/23/18 11:14 98.9 71 21 106/52 (70) 96 98.9 Physical Exam Physical Exam CONSTITUTIONAL: She is very alert. She has normal conjunctivae. Mouth is dry. but opened mouth NECK: Without JVD. LUNGS: bl mild crackles HEART: S1, S2. ABDOMEN: Soft, nontender. EXTREMITIES: No clubbing, cyanosis or edema SKIN: Warm to touch without signs of rash. NEUROLOGIC: She is alert and did focus. Lungs: Crackles Labs LABS Laboratory Tests Test 02/23/18 03:30 White Blood Count 11.5 x10^3/uL (4.0-11.0) Red Blood Count 2.81 x10^6/uL (3.50-5.40) Hemoglobin 8.9 g/dL (12.0-15.5) Hematocrit 27.1 % (36.0-47.0) Mean Corpuscular Volume 96 fL (79-100) Mean Corpuscular Hemoglobin 32 pg (25-35) Mean Corpuscular Hemoglobin Concent 33 g/dL (31-37) Red Cell Distribution Width 13.8 % (11.5-14.5) Platelet Count 315 x10^3/uL (140-400) Neutrophils (%) (Auto) 78 % (31-73) Lymphocytes (%) (Auto) 11 % (24-48) Monocytes (%) (Auto) 9 % (0-9) Eosinophils (%) (Auto) 1 % (0-3) Basophils (%) (Auto) 1 % (0-3) Neutrophils # (Auto) 8.9 x10^3uL (1.8-7.7) Lymphocytes # (Auto) 1.3 x10^3/uL (1.0-4.8) Monocytes # (Auto) 1.1 x10^3/uL (0.0-1.1) Eosinophils # (Auto) 0.1 x10^3/uL (0.0-0.7) Basophils # (Auto) 0.1 x10^3/uL (0.0-0.2) Sodium Level 140 mmol/L (136-145) Potassium Level 4.0 mmol/L (3.5-5.1) Chloride Level 106 mmol/L (98-107) Carbon Dioxide Level 22 mmol/L (21-32) Anion Gap 12 (6-14) Blood Urea Nitrogen 14 mg/dL (7-20) Creatinine 1.6 mg/dL (0.6-1.0) Estimated GFR (Cockcroft-Gault) 30.4 Glucose Level 104 mg/dL (70-99) Calcium Level 8.5 mg/dL (8.5-10.1) Assessment and Plan Assessmemt and Plan Problems Medical Problems: (1) Acute sepsis Status: Acute (2) Altered mental status Status: Acute (3) Fever Status: Acute (4) Tachycardia Status: Acute (5) Urinary tract infection Status: Acute Comment Review of Relevant I have reviewed the following items marilu (where applicable) has been applied. Labs Laboratory Tests Test 02/21/18 17:34 02/22/18 04:20 02/22/18 11:20 02/23/18 03:30 Stool Occult Blood Negative (NEG) White Blood Count 10.5 x10^3/uL (4.0-11.0) 11.5 x10^3/uL (4.0-11.0) Red Blood Count 2.84 x10^6/uL (3.50-5.40) 2.81 x10^6/uL (3.50-5.40) Hemoglobin 9.2 g/dL (12.0-15.5) 8.9 g/dL (12.0-15.5) Hematocrit 29.5 % (36.0-47.0) 27.1 % (36.0-47.0) Mean Corpuscular Volume 104 fL (79-100) 96 fL (79-100) Mean Corpuscular Hemoglobin 32 pg (25-35) 32 pg (25-35) Mean Corpuscular Hemoglobin Concent 31 g/dL (31-37) 33 g/dL (31-37) Red Cell Distribution Width 15.0 % (11.5-14.5) 13.8 % (11.5-14.5) Platelet Count 315 x10^3/uL (140-400) 315 x10^3/uL (140-400) Neutrophils (%) (Auto) 79 % (31-73) 78 % (31-73) Lymphocytes (%) (Auto) 9 % (24-48) 11 % (24-48) Monocytes (%) (Auto) 10 % (0-9) 9 % (0-9) Eosinophils (%) (Auto) 3 % (0-3) 1 % (0-3) Basophils (%) (Auto) 1 % (0-3) 1 % (0-3) Neutrophils # (Auto) 8.3 x10^3uL (1.8-7.7) 8.9 x10^3uL (1.8-7.7) Lymphocytes # (Auto) 0.9 x10^3/uL (1.0-4.8) 1.3 x10^3/uL (1.0-4.8) Monocytes # (Auto) 1.0 x10^3/uL (0.0-1.1) 1.1 x10^3/uL (0.0-1.1) Eosinophils # (Auto) 0.3 x10^3/uL (0.0-0.7) 0.1 x10^3/uL (0.0-0.7) Basophils # (Auto) 0.1 x10^3/uL (0.0-0.2) 0.1 x10^3/uL (0.0-0.2) Sodium Level 140 mmol/L (136-145) 140 mmol/L (136-145) Potassium Level 4.3 mmol/L (3.5-5.1) 4.0 mmol/L (3.5-5.1) Chloride Level 109 mmol/L (98-107) 106 mmol/L (98-107) Carbon Dioxide Level 18 mmol/L (21-32) 22 mmol/L (21-32) Anion Gap 13 (6-14) 12 (6-14) Blood Urea Nitrogen 17 mg/dL (7-20) 14 mg/dL (7-20) Creatinine 1.3 mg/dL (0.6-1.0) 1.6 mg/dL (0.6-1.0) Estimated GFR (Cockcroft-Gault) 38.7 30.4 Glucose Level 97 mg/dL (70-99) 104 mg/dL (70-99) Calcium Level 7.7 mg/dL (8.5-10.1) 8.5 mg/dL (8.5-10.1) Clostridium difficile Toxin (PCR) Negative (Negative) Laboratory Tests Test 02/23/18 03:30 White Blood Count 11.5 x10^3/uL (4.0-11.0) Red Blood Count 2.81 x10^6/uL (3.50-5.40) Hemoglobin 8.9 g/dL (12.0-15.5) Hematocrit 27.1 % (36.0-47.0) Mean Corpuscular Volume 96 fL (79-100) Mean Corpuscular Hemoglobin 32 pg (25-35) Mean Corpuscular Hemoglobin Concent 33 g/dL (31-37) Red Cell Distribution Width 13.8 % (11.5-14.5) Platelet Count 315 x10^3/uL (140-400) Neutrophils (%) (Auto) 78 % (31-73) Lymphocytes (%) (Auto) 11 % (24-48) Monocytes (%) (Auto) 9 % (0-9) Eosinophils (%) (Auto) 1 % (0-3) Basophils (%) (Auto) 1 % (0-3) Neutrophils # (Auto) 8.9 x10^3uL (1.8-7.7) Lymphocytes # (Auto) 1.3 x10^3/uL (1.0-4.8) Monocytes # (Auto) 1.1 x10^3/uL (0.0-1.1) Eosinophils # (Auto) 0.1 x10^3/uL (0.0-0.7) Basophils # (Auto) 0.1 x10^3/uL (0.0-0.2) Sodium Level 140 mmol/L (136-145) Potassium Level 4.0 mmol/L (3.5-5.1) Chloride Level 106 mmol/L (98-107) Carbon Dioxide Level 22 mmol/L (21-32) Anion Gap 12 (6-14) Blood Urea Nitrogen 14 mg/dL (7-20) Creatinine 1.6 mg/dL (0.6-1.0) Estimated GFR (Cockcroft-Gault) 30.4 Glucose Level 104 mg/dL (70-99) Calcium Level 8.5 mg/dL (8.5-10.1) Microbiology 02/19/18 Blood Culture - Preliminary, Resulted NO GROWTH AFTER 3 DAYS 02/19/18 Urine Culture - Preliminary, Resulted 02/19/18 Urine Culture Result 1 (SUE) - Preliminary, Resulted Medications Current Medications Sodium Chloride 1,000 ml @ 1,650 mls/hr Q37M IV Last administered on 02/19/18at 20:25; Start 02/19/18 at 19:57; Stop 02/19/18 at 20:56; Status DC Sodium Chloride 500 ml @ 1,000 mls/hr PRN Q30MIN PRN IV SEE COMMENTS; Start at 20:00; Stop 02/21/18 at 14:35; Status DC Piperacillin Sod/ Tazobactam Sod 4.5 gm/Sodium Chloride 100 ml @ 200 mls/hr Q6HRS IV ; Start 02/20/18 at 00:00; Stop 02/20/18 at 00:00; Status DC Vancomycin HCl (Vanco Per Pharmacy) 1 each PRN DAILY PRN MC SEE COMMENTS Last administered on 02/20/18at 00:57; Start 02/19/18 at 20:00; Stop 02/20/18 at 09:19; Status DC Acetaminophen (Tylenol Supp) 650 mg 1X ONCE IL Last administered on 02/19/18at 20:30; Start 02/19/18 at 20:30; Stop 02/19/18 at 20:31; Status DC Vancomycin HCl 1.25 gm/Sodium Chloride 250 ml @ 166.667 mls/hr 1X ONCE IV Last administered on 02/19/18at 20:55; Start 02/19/18 at 21:00; Stop 02/19/18 at 22: 29; Status DC Piperacillin Sod/ Tazobactam Sod 3.375 gm/Sodium Chloride 50 ml @ 100 mls/hr 1X ONCE IV Last administered on 02/19/18at 20:25; Start 02/19/18 at 20:30; Stop 02/19/18 at 20:59; Status DC Ondansetron HCl (Zofran) 4 mg PRN Q8HRS PRN IV NAUSEA/VOMITING; Start 02/19/18 at 21:30; Stop 02/20/18 at 11:09; Status DC Morphine Sulfate (Morphine Sulfate) 4 mg PRN Q2HR PRN IV PAIN; Start 02/19/18 at 21:30; Stop 02/20/18 at 21:29; Status DC Acetaminophen (Tylenol) 650 mg PRN Q4HRS PRN PO FEVER; Start 02/19/18 at 21:30; Stop 02/20/18 at 11:05; Status DC Sodium Chloride 1,000 ml @ 75 mls/hr 1X ONCE IV Last administered on at 00:20; Start 02/19/18 at 21:30; Stop 02/20/18 at 10:49; Status DC Vancomycin HCl (Vancomycin Random Level) 1 each 1X ONCE MC ; Start 02/21/18 at 21:00; Stop 02/21/18 at 21:00; Status DC Piperacillin Sod/ Tazobactam Sod 2.25 gm/Sodium Chloride 50 ml @ 100 mls/hr Q6HRS IV Last administered on 02/23/18at 06:15; Start 02/20/18 at 09:30; Stop 02/23 at 08:51; Status DC Linezolid/Dextrose 300 ml @ 300 mls/hr Q12HR IV Last administered on 02/23/18at 08:27; Start 02/20/18 at 10:00 Lactobacillus Rhamnosus (Culturelle) 1 cap BID PO Last administered on at 08:36; Start 02/20/18 at 21:00 Acetaminophen (Tylenol) 650 mg PRN Q4HRS PRN PO FEVER/HEADACHE; Start 02/20/18 at 11:00; Stop 02/20/18 at 11:05; Status DC Cyanocobalamin (Vitamin B-12) 1,000 mcg DAILY08 PO Last administered on 08:36; Start 02/20/18 at 11:30 Polyethylene Glycol (miraLAX PACKET) 17 gm PRN DAILY PRN PO CONSTIPATION 1ST CHOICE; Start 02/21/18 at 09:00 Venlafaxine HCl (Effexor) 50 mg TID PO Last administered on 02/23/18 08:36; Start 02/20/18 at 14:00 Multivitamins (Thera M Plus) 1 tab DAILY PO Last administered on 02/23/18 08:36 ; Start 02/20/18 at 11:30 Acetaminophen (Tylenol) 650 mg PRN Q6HRS PRN PO FEVER/HEADACHE Last administered on 02/23/18 08:37; Start 02/20/18 at 11:00 Ondansetron HCl (Zofran) 4 mg PRN Q6HRS PRN IV NAUSEA/VOMITING 1ST CHOICE; Start 02/20/18 at 11:00 Morphine Sulfate (Morphine Sulfate) 2 mg PRN Q2HR PRN IV MODERATE TO SEVERE PAIN; Start 02/20/18 at 11:00 Tramadol HCl (Ultram) 50 mg PRN Q6HRS PRN PO MILD TO MODERATE PAIN Last administered on 02/22/18at 21:32; Start 02/20/18 at 11:00 Docusate Sodium (Colace) 100 mg PRN DAILY PRN PO HARD STOOLS; Start 02/20/18 at 11:00 Heparin Sodium (Porcine) (Heparin Sq) 5,000 unit Q8HRS SQ Last administered on 02/23/18 06:28; Start 02/20/18 at 14:00 Sodium Chloride 1,000 ml @ 75 mls/hr [id number] IV Last administered on 02/22/18 08:50; Start 02/20/18 at 11:00; Stop 02/22/18 at 11:05; Status DC Potassium Chloride (KCl Oral Soln) 40 meq 1X ONCE PO Last administered on 9/6/ 18at 12:37; Start 02/21/18 at 11:45; Stop 02/21/18 at 11:46; Status DC Iron Sucrose 200 mg/Sodium Chloride 110 ml @ 55 mls/hr DAILY IV Last administered on 02/23/18at 09:38; Start 02/21/18 at 12:30; Stop 02/25/18 at 12:29 Albuterol/ Ipratropium (Duoneb) 3 ml RTQID NEB Last administered on 02/23/18at 11 :35; Start 02/22/18 at 12:00 Albuterol Sulfate (Ventolin Neb Soln) 2.5 mg PRN Q4HRS PRN NEB SHORTNESS OF BREATH; Start 02/22/18 at 11:15 Meropenem 500 mg/ Sodium Chloride 50 ml @ 100 mls/hr Q8HRS IV Last administered on 02/23/18at 11:52; Start 02/23/18 at 09:30 Amino Acids/ Glycerin/ Electrolytes 1,000 ml @ 50 mls/hr Q20H IV Last administered on 02/23/18at 11:56; Start 02/23/18 at 12:00 Furosemide (Lasix) 20 mg 1X ONCE IVP Last administered on 02/23/18at 11:59; Start 02/23/18 at 12:00; Stop 02/23/18 at 12:01; Status DC Active Scripts Active Reported Alum-Mag Hydroxide-Simeth Liq (Mag Hydrox/Al Hydrox/Simeth) 360 Ml Oral.susp 30 Ml PO PRN Q2HRS PRN Vitamin B-12 (Cyanocobalamin (Vitamin B-12)) 1,000 Mcg Tablet 1,000 Mcg PO DAILY08 Ondansetron Hcl 4 Mg Tablet 4 Mg PO PRN Q6HRS PRN Venlafaxine Hcl 75 Mg Tablet 150 Mg PO BID Nystatin 100,000 Unit/1 Ml Oral.susp 100,000 Unit TP BID Robitussin Cough-Chest Dm Liq (Guaifenesin/Dextromethorphan) 118 Ml Liquid 118 Ml PO PRN Q4HRS PRN Miralax (Polyethylene Glycol 3350) 17 Gm Powd.pack 1 Packet PO PRN DAILY PRN Dulcolax (Bisacodyl) 5 Mg Tablet.dr 10 Mg [place] PRN DAILY PRN [Multi-Vitamins] 1 Tab PO DAILY Voltaren (Diclofenac Sodium) 100 Gm Gel..gram. 1 Gm TP Tylenol (Acetaminophen) 325 Mg Tablet 650 Mg PO PRN Q4HRS PRN Tramadol Hcl 50 Mg Tablet 1 Tab PO DAILY16 Tylenol (Acetaminophen) 325 Mg Tablet 650 Mg IL PRN Q4HRS PRN Vitals/I & O Vital Sign - Last 24 Hours 02/22/18 02/22/18 02/22/18 02/22/18 15:00 15:38 19:26 19:44 Temp 97.7 98.0 97.7 98.0 Pulse 114 111 Resp 32 24 B/P (MAP) 131/54 (79) 146/68 (94) Pulse Ox 97 95 95 O2 Delivery Room Air Room Air Room Air Room Air 02/22/18 02/22/18 02/22/18 02/22/18 20:00 21:32 22:32 23:26 Temp 97.6 97.6 Pulse 106 Resp 20 B/P (MAP) 112/49 (70) Pulse Ox 94 O2 Delivery Room Air Room Air Room Air Room Air 02/23/18 02/23/18 02/23/18 02/23/18 03:32 07:14 07:52 08:00 Temp 98.1 97.5 98.1 97.5 Pulse 83 73 Resp 20 20 B/P (MAP) 116/62 (80) 100/56 (71) Pulse Ox 98 95 98 O2 Delivery Room Air Room Air Room Air Room Air 02/23/18 02/23/18 11:14 11:36 Temp 98.9 98.9 Pulse 71 Resp 21 B/P (MAP) 106/52 (70) Pulse Ox 96 O2 Delivery Room Air Room Air Intake and Output 02/22/18 02/22/18 02/23/18 15:00 23:00 07:00 Intake Total 237 ml 0 ml Balance 237 ml 0 ml Nutrition Consultation Dietary Evaluation: Recommendations by RD: Increase Calorie Intake, Protein supplementation, PPN/ TPN Comments: pt coughing, consider PPN for short term nutrition Resume diet per LIMITED RADIOLOGY TECHNICIAN if able Expected Outcomes/Goals: to meet > 75% est nutr needs- goal ongoing Malnutrition Findings: Body Fat Depletion (Non Severe: Mild Depletion Weight Status: Underweight SANJAY SHIN MD Feb 23, 2018 13:48
[2018-02-23 15:06] VITALS: BP 107/54
[2018-02-23 19:51] VITALS: BP 136/62
[2018-02-23 23:30] VITALS: BP 117/63
[2018-02-24 03:27] VITALS: BP 103/50
[2018-02-24 05:22] LABS: BASO # 0.1 x10^3/uL (0.0-0.2); BASO % 1 % (0-3); EOS # 0.2 x10^3/uL (0.0-0.7); EOS % 3 % (0-3); HEMATOCRIT 24.1 % (36.0-47.0); HEMOGLOBIN 8.3 g/dL (12.0-15.5); LYMPH # 0.9 x10^3/uL (1.0-4.8); LYMPH % 13 % (24-48); MEAN CORPUSCULAR HEMOGLOBIN 32 pg (25-35); MEAN CORPUSCULAR HGB CONC 34 g/dL (31-37); MEAN CORPUSCULAR VOLUME 94 fL (79-100); MONO % 14 % (0-9); NEUT # 5.1 x10^3uL (1.8-7.7); NEUT % 70 % (31-73); PLATELET COUNT 305 x10^3/uL (140-400); RED BLOOD COUNT 2.57 x10^6/uL (3.50-5.40); RED CELL DISTRIBUTION WIDTH 13.7 % (11.5-14.5); WHITE BLOOD COUNT 7.3 x10^3/uL (4.0-11.0)
[2018-02-24 05:33] LABS: CALCIUM 8.3 mg/dL (8.5-10.1); CREATININE 1.6 mg/dL (0.6-1.0); GFR 30.4; POTASSIUM 3.5 mmol/L (3.5-5.1)
[2018-02-24] MEDS: HEPARIN PF for SUB-Q USE 5,000 UNIT/0.5 ML VIAL. SQ SCH ×3 (06:10→20:07)
[2018-02-24] MEDS: MEROPENEM 500 MG in IV NORMAL SALINE 50ML 50 ML IV SCH ×3 (06:11→20:00)
[2018-02-24 07:00] VITALS: BP 155/62
[2018-02-24] MEDS: IPRATRPIUM/ALBUTEROL 0.5/2.5MG 3 ML NEBU. NEB SCH ×4 (07:17→19:14)
[2018-02-24] MEDS: LACTOBACILLUS RHAMNOSUS GG 1 CAPSULE. PO SCH ×2 (07:39→19:59)
[2018-02-24] MEDS: CYANOCOBALAMIN (VITAMIN B-12) 1,000 MCG TABLET. PO SCH (07:39)
[2018-02-24] MEDS: VENLAFAXINE 50 MG TABLET. PO SCH ×3 (07:40→19:59)
[2018-02-24] MEDS: MULTIVITAMIN with MINERAL TABLET. PO SCH (07:41)
--- NOTE | 2018-02-24 09:32 | PDOC ---
Infectious Disease Note Subjective Subjective Opens eyes to son's voice, noncommunicative No fevers reported ROS ROS unobtainable as patient is noncommunicative Vital Sign Vital Signs Vital Signs Date Time Temp Pulse Resp B/P (MAP) Pulse Ox O2 Delivery O2 Flow Rate FiO2 02/24/18 08:00 Room Air 02/24/18 07:18 94 02/24/18 07:00 98.4 96 22 155/62 (93) 98.4 Physical Exam PHYSICAL EXAM GENERAL: Resting quietly, NAD HENT: Oral cavity dry LUNGS: Congestion, upper airway rattle HEART: S1, S2. ABDOMEN: Soft, nontender.BS active EXTREMITIES: No clubbing, cyanosis or edema SKIN: Warm to touch without signs of rash. NEUROLOGIC: Opens eyes to son's voice, decrease attention span, no follow commands PIV Labs Lab Laboratory Tests Test 02/24/18 05:00 White Blood Count 7.3 x10^3/uL (4.0-11.0) Red Blood Count 2.57 x10^6/uL (3.50-5.40) Hemoglobin 8.3 g/dL (12.0-15.5) Hematocrit 24.1 % (36.0-47.0) Mean Corpuscular Volume 94 fL (79-100) Mean Corpuscular Hemoglobin 32 pg (25-35) Mean Corpuscular Hemoglobin Concent 34 g/dL (31-37) Red Cell Distribution Width 13.7 % (11.5-14.5) Platelet Count 305 x10^3/uL (140-400) Neutrophils (%) (Auto) 70 % (31-73) Lymphocytes (%) (Auto) 13 % (24-48) Monocytes (%) (Auto) 14 % (0-9) Eosinophils (%) (Auto) 3 % (0-3) Basophils (%) (Auto) 1 % (0-3) Neutrophils # (Auto) 5.1 x10^3uL (1.8-7.7) Lymphocytes # (Auto) 0.9 x10^3/uL (1.0-4.8) Monocytes # (Auto) 1.0 x10^3/uL (0.0-1.1) Eosinophils # (Auto) 0.2 x10^3/uL (0.0-0.7) Basophils # (Auto) 0.1 x10^3/uL (0.0-0.2) Sodium Level 136 mmol/L (136-145) Potassium Level 3.5 mmol/L (3.5-5.1) Chloride Level 104 mmol/L (98-107) Carbon Dioxide Level 23 mmol/L (21-32) Anion Gap 9 (6-14) Blood Urea Nitrogen 15 mg/dL (7-20) Creatinine 1.6 mg/dL (0.6-1.0) Estimated GFR (Cockcroft-Gault) 30.4 Glucose Level 94 mg/dL (70-99) Calcium Level 8.3 mg/dL (8.5-10.1) Micro 02/19. URINE CULTURE RES 1 Final Proteus mirabilis MICS are expressed in micrograms per mL Antibiotic RSLT#1 Ampicillin R>=32 Cefazolin S Cefepime S<=0.12 Ceftriaxone S<=0.25 Cefuroxime S =4 Ciprofloxacin R>=4 Ertapenem S<=0.12 Gentamicin S<=1 Levofloxacin R>=8 Meropenem S<=0.25 Nitrofurantoin R =128 Piperacillin/Tazobactam S<=4 Tetracycline R>=16 Tobramycin S<=1 Trimethoprim/Sulfa R>=320 BLOOD CULTURE Preliminary NO GROWTH AFTER 4 DAYS Objective Assessment UTI- POA - Proteus (Resistant to amp, quinolones, NTF, tetra, Bactrim) Leukocytosis - improved Rhonchi - ? aspiration - although reviewed speech eval 02/20 Fever - resolved Encephalopathy Abx allergy - Levoflox - mental status change JINYN Interstitial opacity Anemia - better Plan Plan of Care Zyvox and meropenem Awaiting pulmonary evaluation - Reviewed Hold po for now D/w son D/w RN Attending Co-Sign Attending Co-Sign The patient was seen and interviewed as well as examined at the bedside. The chart was reviewed. The case was discussed. Agree with the plan of care. EMMANUEL ALFONSO APRN Feb 24, 2018 09:32 MARIFER MILES MD Feb 24, 2018 13:57
--- NOTE | 2018-02-24 09:41 | PDOC ---
Provider Note Provider Note [id number] ? aspiration acute bronchospasm ? pulm edema see orders NEHAL ARREOLA MD Feb 24, 2018 09:41
[2018-02-24] MEDS: IRON SUCROSE COMPLEX 200 MG in IV NORMAL SALINE 100ML 100 ML IV SCH (10:04)
--- NOTE | 2018-02-24 10:16 | CONS ---
DATE OF CONSULTATION: 02/24/2018 REASON FOR CONSULTATION: I was asked to see this 87-year-old lady for wheezing, aspiration. HISTORY OF PRESENT ILLNESS: The patient has dementia, is not able to give me any information. All of the information was obtained from chart, nursing staff and her son. She is a lifelong nonsmoker with no history of lung disease. She was admitted for sepsis, UTI. She has been on Zyvox and meropenem. Her urine culture was positive. Blood culture is negative so far. ID is on the case. She was evaluated by Speech on 02/19, which did not show aspiration, but since yesterday, she has had wheezing, and there is a concern for aspiration. PAST MEDICAL HISTORY: Dementia, UTI, chronic kidney disease, iron deficiency anemia. ALLERGIES: LEVOFLOXACIN. MEDICATIONS: Currently, she is on Zyvox, meropenem, DuoNeb, heparin subQ. SOCIAL HISTORY: She does not smoke. FAMILY HISTORY: Positive for hypertension. REVIEW OF SYSTEMS: As mentioned as above. I have discussed the patient with RN and her son. Other systems otherwise negative. PHYSICAL EXAMINATION: GENERAL: This is an elderly lady. VITAL SIGNS: Her O2 saturation is 94%, respiratory rate 22, heart rate 96, blood pressure 155/62, temperature 98.4. HEENT: Normocephalic, atraumatic. Pupils equal, round, reactive to light. Nose is clear. NECK: There is no JVD, lymphadenopathy or thyromegaly. CARDIOVASCULAR: Regular rate and rhythm. PMI is nondisplaced. CHEST: Inspection is normal. LUNGS: There is end-expiratory wheezing and rhonchi, dullness at the bases. ABDOMEN: Soft. Bowel sounds are good. There is no mass. EXTREMITIES: There is trace edema. LYMPHATICS: There is no lymphadenopathy. NEUROLOGIC: She does not follow my commands. SKIN: Chronic changes. LABORATORY DATA: I reviewed the following lab data: Chest x-ray shows small pleural effusion. WBC 7.3, hemoglobin 8.3, platelets 305. Sodium 136, potassium 3.5, chloride 104, CO2 of 23, glucose 94, BUN 15, creatinine 1.6. IMPRESSION: 1. Wheezing, probably secondary to acute bronchospasm versus acute pulmonary edema versus aspiration versus others. 2. Possible aspiration. 3. Acute bronchospasm. 4. Sepsis. 5. Urinary tract infection. 6. Chronic kidney disease. 7. Anemia. PLAN AND RECOMMENDATIONS: 1. Titrate FiO2 to keep O2 saturation 92%. 2. Continue antibiotic. 3. Continue bronchodilator. 4. Add inhaled corticosteroid. 5. Elevate head of bed. 6. Keep n.p.o. until she is evaluated by the Speech. 7. Protonix. 8. Heparin for DVT prophylaxis. 9. The patient is DNR. 10. The findings and recommendations were discussed with the patient's son and RN. Thank you very much for allowing me to participate in care of this very nice lady. NEHAL ARREOLA M.D. DR: CICI/bret JOB#: [id number] / [id number] LUCAS
[2018-02-24 11:00] VITALS: BP 102/53
[2018-02-24] MEDS: BUDESONIDE 0.5 MG/2 ML NEBU. NEB SCH ×2 (11:11→19:15)
[2018-02-24] MEDS: AMINO AC 3%/ELECTROLYTE/GLYCER 1,000 ML IV SCH ×2 (12:04→20:00)
[2018-02-24] MEDS ORDERED: FUROSEMIDE 20 MG/2 ML VIAL. IVP ONE (13:00)
[2018-02-24 15:00] VITALS: BP 125/58
--- NOTE | 2018-02-24 15:16 | PDOC ---
PROGRESS NOTES Chief Complaint Chief Complaint AMS, metabolic encephalopathy severe baseline dementia UTI POA SEpsis JINNY, vasomotor ckd3 [facility] resident hypokalemia iron deficiency mild pulmanory edema DNR plan: ID consulted, on meroppenum, zyvox lasix 20mg iv x1 today, add PPN 50cc/h given low po intake repeated cxr tmr add duoneb, albuterol prn swallow evalulated passed, asked to reeval. pt possible aspirated cont some home meds dvt, gi ppx labs tmr fu ucx, bcx replete K, venofer daily x5ds. pulm consulted History of Present Illness History of Present Illness ROS: no fever, chills, sob or chest pain this is likely her baseline not talking to me or follow commands, talks a little bit to nurse. some chest congestion since 02/22. more sob as per nurse, pt looks calm when i saw her tho cr down to 1.3, up to 1.6 again, refuse to eat yesterday low po intake less responding today Vitals Vitals Vital Signs Date Time Temp Pulse Resp B/P (MAP) Pulse Ox O2 Delivery O2 Flow Rate FiO2 02/24/18 11:09 Room Air 02/24/18 11:00 98.6 89 24 102/53 (69) 90 98.6 Physical Exam Physical Exam GENERAL: Resting quietly, NAD HENT: Oral cavity dry LUNGS: Congestion, upper airway rattle HEART: S1, S2. ABDOMEN: Soft, nontender.BS active EXTREMITIES: No clubbing, cyanosis or edema SKIN: Warm to touch without signs of rash. NEUROLOGIC: Opens eyes to son's voice, decrease attention span, no follow commands PIV Lungs: Crackles Labs LABS Laboratory Tests Test 02/24/18 05:00 White Blood Count 7.3 x10^3/uL (4.0-11.0) Red Blood Count 2.57 x10^6/uL (3.50-5.40) Hemoglobin 8.3 g/dL (12.0-15.5) Hematocrit 24.1 % (36.0-47.0) Mean Corpuscular Volume 94 fL (79-100) Mean Corpuscular Hemoglobin 32 pg (25-35) Mean Corpuscular Hemoglobin Concent 34 g/dL (31-37) Red Cell Distribution Width 13.7 % (11.5-14.5) Platelet Count 305 x10^3/uL (140-400) Neutrophils (%) (Auto) 70 % (31-73) Lymphocytes (%) (Auto) 13 % (24-48) Monocytes (%) (Auto) 14 % (0-9) Eosinophils (%) (Auto) 3 % (0-3) Basophils (%) (Auto) 1 % (0-3) Neutrophils # (Auto) 5.1 x10^3uL (1.8-7.7) Lymphocytes # (Auto) 0.9 x10^3/uL (1.0-4.8) Monocytes # (Auto) 1.0 x10^3/uL (0.0-1.1) Eosinophils # (Auto) 0.2 x10^3/uL (0.0-0.7) Basophils # (Auto) 0.1 x10^3/uL (0.0-0.2) Sodium Level 136 mmol/L (136-145) Potassium Level 3.5 mmol/L (3.5-5.1) Chloride Level 104 mmol/L (98-107) Carbon Dioxide Level 23 mmol/L (21-32) Anion Gap 9 (6-14) Blood Urea Nitrogen 15 mg/dL (7-20) Creatinine 1.6 mg/dL (0.6-1.0) Estimated GFR (Cockcroft-Gault) 30.4 Glucose Level 94 mg/dL (70-99) Calcium Level 8.3 mg/dL (8.5-10.1) Assessment and Plan Assessmemt and Plan Problems Medical Problems: (1) Acute sepsis Status: Acute (2) Altered mental status Status: Acute (3) Fever Status: Acute (4) Tachycardia Status: Acute (5) Urinary tract infection Status: Acute Comment Review of Relevant I have reviewed the following items marilu (where applicable) has been applied. Labs Laboratory Tests Test 02/23/18 03:30 02/24/18 05:00 White Blood Count 11.5 x10^3/uL (4.0-11.0) 7.3 x10^3/uL (4.0-11.0) Red Blood Count 2.81 x10^6/uL (3.50-5.40) 2.57 x10^6/uL (3.50-5.40) Hemoglobin 8.9 g/dL (12.0-15.5) 8.3 g/dL (12.0-15.5) Hematocrit 27.1 % (36.0-47.0) 24.1 % (36.0-47.0) Mean Corpuscular Volume 96 fL (79-100) 94 fL (79-100) Mean Corpuscular Hemoglobin 32 pg (25-35) 32 pg (25-35) Mean Corpuscular Hemoglobin Concent 33 g/dL (31-37) 34 g/dL (31-37) Red Cell Distribution Width 13.8 % (11.5-14.5) 13.7 % (11.5-14.5) Platelet Count 315 x10^3/uL (140-400) 305 x10^3/uL (140-400) Neutrophils (%) (Auto) 78 % (31-73) 70 % (31-73) Lymphocytes (%) (Auto) 11 % (24-48) 13 % (24-48) Monocytes (%) (Auto) 9 % (0-9) 14 % (0-9) Eosinophils (%) (Auto) 1 % (0-3) 3 % (0-3) Basophils (%) (Auto) 1 % (0-3) 1 % (0-3) Neutrophils # (Auto) 8.9 x10^3uL (1.8-7.7) 5.1 x10^3uL (1.8-7.7) Lymphocytes # (Auto) 1.3 x10^3/uL (1.0-4.8) 0.9 x10^3/uL (1.0-4.8) Monocytes # (Auto) 1.1 x10^3/uL (0.0-1.1) 1.0 x10^3/uL (0.0-1.1) Eosinophils # (Auto) 0.1 x10^3/uL (0.0-0.7) 0.2 x10^3/uL (0.0-0.7) Basophils # (Auto) 0.1 x10^3/uL (0.0-0.2) 0.1 x10^3/uL (0.0-0.2) Sodium Level 140 mmol/L (136-145) 136 mmol/L (136-145) Potassium Level 4.0 mmol/L (3.5-5.1) 3.5 mmol/L (3.5-5.1) Chloride Level 106 mmol/L (98-107) 104 mmol/L (98-107) Carbon Dioxide Level 22 mmol/L (21-32) 23 mmol/L (21-32) Anion Gap 12 (6-14) 9 (6-14) Blood Urea Nitrogen 14 mg/dL (7-20) 15 mg/dL (7-20) Creatinine 1.6 mg/dL (0.6-1.0) 1.6 mg/dL (0.6-1.0) Estimated GFR (Cockcroft-Gault) 30.4 30.4 Glucose Level 104 mg/dL (70-99) 94 mg/dL (70-99) Calcium Level 8.5 mg/dL (8.5-10.1) 8.3 mg/dL (8.5-10.1) Laboratory Tests Test 02/24/18 05:00 White Blood Count 7.3 x10^3/uL (4.0-11.0) Red Blood Count 2.57 x10^6/uL (3.50-5.40) Hemoglobin 8.3 g/dL (12.0-15.5) Hematocrit 24.1 % (36.0-47.0) Mean Corpuscular Volume 94 fL (79-100) Mean Corpuscular Hemoglobin 32 pg (25-35) Mean Corpuscular Hemoglobin Concent 34 g/dL (31-37) Red Cell Distribution Width 13.7 % (11.5-14.5) Platelet Count 305 x10^3/uL (140-400) Neutrophils (%) (Auto) 70 % (31-73) Lymphocytes (%) (Auto) 13 % (24-48) Monocytes (%) (Auto) 14 % (0-9) Eosinophils (%) (Auto) 3 % (0-3) Basophils (%) (Auto) 1 % (0-3) Neutrophils # (Auto) 5.1 x10^3uL (1.8-7.7) Lymphocytes # (Auto) 0.9 x10^3/uL (1.0-4.8) Monocytes # (Auto) 1.0 x10^3/uL (0.0-1.1) Eosinophils # (Auto) 0.2 x10^3/uL (0.0-0.7) Basophils # (Auto) 0.1 x10^3/uL (0.0-0.2) Sodium Level 136 mmol/L (136-145) Potassium Level 3.5 mmol/L (3.5-5.1) Chloride Level 104 mmol/L (98-107) Carbon Dioxide Level 23 mmol/L (21-32) Anion Gap 9 (6-14) Blood Urea Nitrogen 15 mg/dL (7-20) Creatinine 1.6 mg/dL (0.6-1.0) Estimated GFR (Cockcroft-Gault) 30.4 Glucose Level 94 mg/dL (70-99) Calcium Level 8.3 mg/dL (8.5-10.1) Microbiology 02/19/18 Blood Culture - Preliminary, Resulted NO GROWTH AFTER 4 DAYS 02/19/18 Urine Culture - Final, Complete 02/19/18 Urine Culture Result 1 (SUE) - Final, Complete 02/19/18 Antimicrobic Susceptibility - Final, Complete Medications Current Medications Sodium Chloride 1,000 ml @ 1,650 mls/hr Q37M IV Last administered on 02/19/18at 20:25; Start 02/19/18 at 19:57; Stop 02/19/18 at 20:56; Status DC Sodium Chloride 500 ml @ 1,000 mls/hr PRN Q30MIN PRN IV SEE COMMENTS; Start at 20:00; Stop 02/21/18 at 14:35; Status DC Piperacillin Sod/ Tazobactam Sod 4.5 gm/Sodium Chloride 100 ml @ 200 mls/hr Q6HRS IV ; Start 02/20/18 at 00:00; Stop 02/20/18 at 00:00; Status DC Vancomycin HCl (Vanco Per Pharmacy) 1 each PRN DAILY PRN MC SEE COMMENTS Last administered on 02/20/18at 00:57; Start 02/19/18 at 20:00; Stop 02/20/18 at 09:19; Status DC Acetaminophen (Tylenol Supp) 650 mg 1X ONCE IA Last administered on 02/19/18at 20:30; Start 02/19/18 at 20:30; Stop 02/19/18 at 20:31; Status DC Vancomycin HCl 1.25 gm/Sodium Chloride 250 ml @ 166.667 mls/hr 1X ONCE IV Last administered on 02/19/18at 20:55; Start 02/19/18 at 21:00; Stop 02/19/18 at 22: 29; Status DC Piperacillin Sod/ Tazobactam Sod 3.375 gm/Sodium Chloride 50 ml @ 100 mls/hr 1X ONCE IV Last administered on 02/19/18at 20:25; Start 02/19/18 at 20:30; Stop 02/19/18 at 20:59; Status DC Ondansetron HCl (Zofran) 4 mg PRN Q8HRS PRN IV NAUSEA/VOMITING; Start 02/19/18 at 21:30; Stop 02/20/18 at 11:09; Status DC Morphine Sulfate (Morphine Sulfate) 4 mg PRN Q2HR PRN IV PAIN; Start 02/19/18 at 21:30; Stop 02/20/18 at 21:29; Status DC Acetaminophen (Tylenol) 650 mg PRN Q4HRS PRN PO FEVER; Start 02/19/18 at 21:30; Stop 02/20/18 at 11:05; Status DC Sodium Chloride 1,000 ml @ 75 mls/hr 1X ONCE IV Last administered on at 00:20; Start 02/19/18 at 21:30; Stop 02/20/18 at 10:49; Status DC Vancomycin HCl (Vancomycin Random Level) 1 each 1X ONCE MC ; Start 02/21/18 at 21:00; Stop 02/21/18 at 21:00; Status DC Piperacillin Sod/ Tazobactam Sod 2.25 gm/Sodium Chloride 50 ml @ 100 mls/hr Q6HRS IV Last administered on 02/23/18at 06:15; Start 02/20/18 at 09:30; Stop 02/23 at 08:51; Status DC Linezolid/Dextrose 300 ml @ 300 mls/hr Q12HR IV Last administered on 02/24/18at 08:39; Start 02/20/18 at 10:00 Lactobacillus Rhamnosus (Culturelle) 1 cap BID PO Last administered on at 08:36; Start 02/20/18 at 21:00 Acetaminophen (Tylenol) 650 mg PRN Q4HRS PRN PO FEVER/HEADACHE; Start 02/20/18 at 11:00; Stop 02/20/18 at 11:05; Status DC Cyanocobalamin (Vitamin B-12) 1,000 mcg DAILY08 PO Last administered on 08:36; Start 02/20/18 at 11:30 Polyethylene Glycol (miraLAX PACKET) 17 gm PRN DAILY PRN PO CONSTIPATION 1ST CHOICE; Start 02/21/18 at 09:00 Venlafaxine HCl (Effexor) 50 mg TID PO Last administered on 02/23/18 08:36; Start 02/20/18 at 14:00 Multivitamins (Thera M Plus) 1 tab DAILY PO Last administered on 02/23/18 08:36 ; Start 02/20/18 at 11:30 Acetaminophen (Tylenol) 650 mg PRN Q6HRS PRN PO FEVER/HEADACHE Last administered on 02/23/18at 08:37; Start 02/20/18 at 11:00 Ondansetron HCl (Zofran) 4 mg PRN Q6HRS PRN IV NAUSEA/VOMITING 1ST CHOICE; Start 02/20/18 at 11:00 Morphine Sulfate (Morphine Sulfate) 2 mg PRN Q2HR PRN IV MODERATE TO SEVERE PAIN; Start 02/20/18 at 11:00 Tramadol HCl (Ultram) 50 mg PRN Q6HRS PRN PO MILD TO MODERATE PAIN Last administered on 02/22/18at 21:32; Start 02/20/18 at 11:00 Docusate Sodium (Colace) 100 mg PRN DAILY PRN PO HARD STOOLS; Start 02/20/18 at 11:00 Heparin Sodium (Porcine) (Heparin Sq) 5,000 unit Q8HRS SQ Last administered on 02/24/18 06:10; Start 02/20/18 at 14:00 Sodium Chloride 1,000 ml @ 75 mls/hr [id number] IV Last administered on 02/22/18at 08:50; Start 02/20/18 at 11:00; Stop 02/22/18 at 11:05; Status DC Potassium Chloride (KCl Oral Soln) 40 meq 1X ONCE PO Last administered on at 12:37; Start 02/21/18 at 11:45; Stop 02/21/18 at 11:46; Status DC Iron Sucrose 200 mg/Sodium Chloride 110 ml @ 55 mls/hr DAILY IV Last administered on 02/24/18at 10:04; Start 02/21/18 at 12:30; Stop 02/25/18 at 12:29 Albuterol/ Ipratropium (Duoneb) 3 ml RTQID NEB Last administered on 02/24/18at 11 :11; Start 02/22/18 at 12:00 Albuterol Sulfate (Ventolin Neb Soln) 2.5 mg PRN Q4HRS PRN NEB SHORTNESS OF BREATH; Start 02/22/18 at 11:15 Meropenem 500 mg/ Sodium Chloride 50 ml @ 100 mls/hr Q8HRS IV Last administered on 02/24/18at 06:11; Start 02/23/18 at 09:30 Amino Acids/ Glycerin/ Electrolytes 1,000 ml @ 50 mls/hr Q20H IV Last administered on 02/24/18at 12:04; Start 02/23/18 at 12:00 Furosemide (Lasix) 20 mg 1X ONCE IVP Last administered on 02/23/18at 11:59; Start 02/23/18 at 12:00; Stop 02/23/18 at 12:01; Status DC Budesonide (Pulmicort) 0.5 mg RTBID NEB Last administered on 02/24/18at 11:11; Start 02/24/18 at 10:30 Furosemide (Lasix) 20 mg 1X ONCE IVP Last administered on 02/24/18at 13:18; Start 02/24/18 at 13:00; Stop 02/24/18 at 13:01; Status DC Active Scripts Active Reported Alum-Mag Hydroxide-Simeth Liq (Mag Hydrox/Al Hydrox/Simeth) 360 Ml Oral.susp 30 Ml PO PRN Q2HRS PRN Vitamin B-12 (Cyanocobalamin (Vitamin B-12)) 1,000 Mcg Tablet 1,000 Mcg PO DAILY08 Ondansetron Hcl 4 Mg Tablet 4 Mg PO PRN Q6HRS PRN Venlafaxine Hcl 75 Mg Tablet 150 Mg PO BID Nystatin 100,000 Unit/1 Ml Oral.susp 100,000 Unit TP BID Robitussin Cough-Chest Dm Liq (Guaifenesin/Dextromethorphan) 118 Ml Liquid 118 Ml PO PRN Q4HRS PRN Miralax (Polyethylene Glycol 3350) 17 Gm Powd.pack 1 Packet PO PRN DAILY PRN Dulcolax (Bisacodyl) 5 Mg Tablet.dr 10 Mg IA PRN DAILY PRN [Multi-Vitamins] 1 Tab PO DAILY Voltaren (Diclofenac Sodium) 100 Gm Gel..gram. 1 Gm TP Tylenol (Acetaminophen) 325 Mg Tablet 650 Mg PO PRN Q4HRS PRN Tramadol Hcl 50 Mg Tablet 1 Tab PO DAILY16 Tylenol (Acetaminophen) 325 Mg Tablet 650 Mg IA PRN Q4HRS PRN Vitals/I & O Vital Sign - Last 24 Hours 02/23/18 02/23/18 02/23/18 02/23/18 15:47 19:22 19:51 20:11 Temp 98.0 98.0 Pulse 107 Resp 16 B/P (MAP) 136/62 (86) Pulse Ox 95 95 O2 Delivery Room Air Room Air Room Air Room Air 02/23/18 02/24/18 02/24/18 02/24/18 23:30 03:27 07:00 07:18 Temp 97.5 98.0 98.4 97.5 98.0 98.4 Pulse 105 90 96 Resp 16 16 22 B/P (MAP) 117/63 (81) 103/50 (67) 155/62 (93) Pulse Ox 92 94 100 94 O2 Delivery Room Air Room Air Room Air Room Air 02/24/18 02/24/18 02/24/18 08:00 11:00 11:09 Temp 98.6 98.6 Pulse 89 Resp 24 B/P (MAP) 102/53 (69) Pulse Ox 90 O2 Delivery Room Air Room Air Room Air Intake and Output 02/23/18 02/23/18 02/24/18 15:00 23:00 07:00 Intake Total 700 ml 0 ml Output Total 4 ml Balance 700 ml -4 ml Nutrition Consultation Dietary Evaluation: Recommendations by RD: Increase Calorie Intake, Protein supplementation, PPN/ TPN Comments: pt coughing, consider PPN for short term nutrition Resume diet per [employer] if able Expected Outcomes/Goals: to meet > 75% est nutr needs- goal ongoing Malnutrition Findings: Body Fat Depletion (Non Severe: Mild Depletion Weight Status: Underweight SANJAY SHIN MD Feb 24, 2018 15:16
[2018-02-24 19:34] VITALS: BP 119/51
[2018-02-24 23:17] VITALS: BP 101/47
[2018-02-25 03:56] VITALS: BP 110/56
[2018-02-25] MEDS: MEROPENEM 500 MG in IV NORMAL SALINE 50ML 50 ML IV SCH (05:58)
[2018-02-25] MEDS: HEPARIN PF for SUB-Q USE 5,000 UNIT/0.5 ML VIAL. SQ SCH ×3 (06:02→22:07)
[2018-02-25 07:00] VITALS: BP 134/61
[2018-02-25] MEDS: CYANOCOBALAMIN (VITAMIN B-12) 1,000 MCG TABLET. PO SCH (08:00)
[2018-02-25] MEDS: BUDESONIDE 0.5 MG/2 ML NEBU. NEB SCH ×2 (08:16→20:36)
[2018-02-25] MEDS: IPRATRPIUM/ALBUTEROL 0.5/2.5MG 3 ML NEBU. NEB SCH ×4 (08:16→20:36)
--- NOTE | 2018-02-25 08:41 | PDOC ---
PULMONARY PROGRESS NOTES Subjective PT FEELS BETTER LESS SOA Vitals Vital Signs Date Time Temp Pulse Resp B/P (MAP) Pulse Ox O2 Delivery O2 Flow Rate FiO2 02/25/18 08:16 92 Room Air 02/25/18 07:00 98.4 92 18 134/61 (85) 98.4 ROS: No Nausea, No Chest Pain, No Abdominal Pain, No Increase Cough Lungs: Crackles Cardiovascular: S1, S2 Abdomen: Soft Neuro Exam: Alert Extremities: No Edema Skin: Warm Labs Laboratory Tests Test 02/24/18 05:00 White Blood Count 7.3 x10^3/uL (4.0-11.0) Red Blood Count 2.57 x10^6/uL (3.50-5.40) Hemoglobin 8.3 g/dL (12.0-15.5) Hematocrit 24.1 % (36.0-47.0) Mean Corpuscular Volume 94 fL (79-100) Mean Corpuscular Hemoglobin 32 pg (25-35) Mean Corpuscular Hemoglobin Concent 34 g/dL (31-37) Red Cell Distribution Width 13.7 % (11.5-14.5) Platelet Count 305 x10^3/uL (140-400) Neutrophils (%) (Auto) 70 % (31-73) Lymphocytes (%) (Auto) 13 % (24-48) Monocytes (%) (Auto) 14 % (0-9) Eosinophils (%) (Auto) 3 % (0-3) Basophils (%) (Auto) 1 % (0-3) Neutrophils # (Auto) 5.1 x10^3uL (1.8-7.7) Lymphocytes # (Auto) 0.9 x10^3/uL (1.0-4.8) Monocytes # (Auto) 1.0 x10^3/uL (0.0-1.1) Eosinophils # (Auto) 0.2 x10^3/uL (0.0-0.7) Basophils # (Auto) 0.1 x10^3/uL (0.0-0.2) Sodium Level 136 mmol/L (136-145) Potassium Level 3.5 mmol/L (3.5-5.1) Chloride Level 104 mmol/L (98-107) Carbon Dioxide Level 23 mmol/L (21-32) Anion Gap 9 (6-14) Blood Urea Nitrogen 15 mg/dL (7-20) Creatinine 1.6 mg/dL (0.6-1.0) Estimated GFR (Cockcroft-Gault) 30.4 Glucose Level 94 mg/dL (70-99) Calcium Level 8.3 mg/dL (8.5-10.1) Medications Active Scripts Medications Dose Route/Sig Max Daily Dose Days Date Category Alum-Mag Hydroxide-Simeth Liq (Mag Hydrox/Al Hydrox/Simeth) 360 Ml Oral.susp 30 Ml PO PRN Q2HRS PRN 02/19/18 Reported Vitamin B-12 (Cyanocobalamin (Vitamin B-12)) 1,000 Mcg Tablet 1,000 Mcg PO DAILY08 02/19/18 Reported Ondansetron Hcl 4 Mg Tablet 4 Mg PO PRN Q6HRS PRN 02/19/18 Reported Venlafaxine Hcl 75 Mg Tablet 150 Mg PO BID 02/19/18 Reported Nystatin 100,000 Unit/1 Ml Oral.susp 100,000 Unit TP BID 02/19/18 Reported Robitussin Cough-Chest Dm Liq (Guaifenesin/Dextromethorphan) 118 Ml Liquid 118 Ml PO PRN Q4HRS PRN 01/31/16 Reported Miralax (Polyethylene Glycol 3350) 17 Gm Powd.pack 1 Packet PO PRN DAILY PRN 01/31/16 Reported Dulcolax (Bisacodyl) 5 Mg Tablet.dr 10 Mg RI PRN DAILY PRN 01/31/16 Reported [Multi-Vitamins] 1 Tab PO DAILY 11/16/15 Reported Voltaren (Diclofenac Sodium) 100 Gm Gel..gram. 1 Gm TP 09/01/15 Reported Tylenol (Acetaminophen) 325 Mg Tablet 650 Mg PO PRN Q4HRS PRN 09/01/15 Reported Tramadol Hcl 50 Mg Tablet 1 Tab PO DAILY16 09/01/15 Reported Tylenol (Acetaminophen) 325 Mg Tablet 650 Mg RI PRN Q4HRS PRN 09/01/15 Reported Impression . IMPRESSION: 1. Wheezing, probably secondary to acute bronchospasm versus acute pulmonary edema versus aspiration 2. Possible aspiration. 3. Acute bronchospasm. 4. Sepsis. 5. Urinary tract infection. 6. Chronic kidney disease. 7. Anemia. Plan . PT FEELS BETTER READY FOR D/C THANKS YONG DAMICO MD Feb 25, 2018 08:41
--- NOTE | 2018-02-25 08:45 | RAD ---
Portable chest, 02/25/2018: HISTORY: Congestive heart failure Comparison is made to a study from 02/22/2018. The heart size is normal. There is calcific plaquing of the aorta. There is scarring over the pulmonary apices. The pulmonary markings are slightly prominent but unchanged, likely due to scarring. No pulmonary consolidation is seen. There is unchanged blunting of the right lateral costophrenic angle, likely due to scarring. A tiny amount pleural fluid cannot be excluded. No new abnormality is detected. IMPRESSION: Stable portable chest. Electronically signed by: Tyron Varghese MD (02/25/2018 8:41 AM) [facility]
[2018-02-25] MEDS: LACTOBACILLUS RHAMNOSUS GG 1 CAPSULE. PO SCH (09:00)
[2018-02-25] MEDS: VENLAFAXINE 50 MG TABLET. PO SCH ×3 (09:00→21:00)
[2018-02-25] MEDS: MULTIVITAMIN with MINERAL TABLET. PO SCH (09:00)
--- NOTE | 2018-02-25 10:51 | PDOC ---
Infectious Disease Note Subjective Subjective Opens eyes to son's voice , speaks but difficult to understand No fevers reported ROS ROS no n/v/d/ Vital Sign Vital Signs Vital Signs Date Time Temp Pulse Resp B/P (MAP) Pulse Ox O2 Delivery O2 Flow Rate FiO2 02/25/18 08:16 92 Room Air 02/25/18 07:00 98.4 92 18 134/61 (85) 98.4 Physical Exam PHYSICAL EXAM GENERAL: Resting quietly, NAD HENT: Oral cavity dry LUNGS: Congestion, upper airway rattle HEART: S1, S2. ABDOMEN: Soft, nontender.BS active EXTREMITIES: No clubbing, cyanosis or edema SKIN: Warm to touch without signs of rash. NEUROLOGIC: Opens eyes to son's voice, decrease attention span, no follow commands PIV Labs Micro Microbiology 02/19/18 Blood Culture - Final, Complete NO GROWTH AFTER 5 DAYS 02/19/18 Urine Culture - Final, Complete 02/19/18 Urine Culture Result 1 (SUE) - Final, Complete 02/19/18 Antimicrobic Susceptibility - Final, Complete Objective Assessment UTI- POA - Proteus (Resistant to amp, quinolones, NTF, tetra, Bactrim) Leukocytosis - improved Rhonchi - ? aspiration - although reviewed speech eval 02/20 Fever - resolved Encephalopathy Abx allergy - Levoflox - mental status change JINNY Interstitial opacity Anemia - better Dementia Plan Plan of Care dc/ Zyvox and meropenem , po augmentin D/w son in detail, to to eat and go to hospice at facility ( pt was on hospice and did not deteriorate before, but now he said she should be comfortable and happy ) D/w CRISTINA MIXON MD Feb 25, 2018 10:51
[2018-02-25 11:00] VITALS: BP 105/54
--- NOTE | 2018-02-25 12:29 | PDOC ---
PROGRESS NOTES Chief Complaint Chief Complaint AMS, metabolic encephalopathy severe baseline dementia UTI POA SEpsis JINNY, vasomotor ckd3 SNF resident hypokalemia iron deficiency mild pulmanory edema DNR History of Present Illness History of Present Illness Assisted living resident Smiles but non verbal to me DNR Reviewed other notes, son interested in hospice Patient was in hospice before but did not deteriorate Plan: Son interested in hospice, consult social contact worker, hospice DNR I'm trying to DC to hospice tomorrow Supportive care Vitals Vitals Vital Signs Date Time Temp Pulse Resp B/P (MAP) Pulse Ox O2 Delivery O2 Flow Rate FiO2 02/25/18 11:00 98.1 96 18 105/54 (71) 94 Room Air 98.1 Physical Exam Physical Exam GENERAL: Resting quietly, NAD HENT: Oral cavity dry LUNGS: Congestion, upper airway rattle HEART: S1, S2. ABDOMEN: Soft, nontender.BS active EXTREMITIES: No clubbing, cyanosis or edema SKIN: Warm to touch without signs of rash. NEUROLOGIC: Opens eyes to son's voice, decrease attention span, no follow commands PIV General: Cooperative Heart: Regular rate Lungs: Clear, Crackles Abdomen: Normal bowel sounds Extremities: No clubbing, No cyanosis Skin: No rashes Review of Systems Review of Systems limited ROS dementia Assessment and Plan Assessmemt and Plan Problems Medical Problems: (1) Acute sepsis Status: Acute (2) Altered mental status Status: Acute (3) Fever Status: Acute (4) Tachycardia Status: Acute (5) Urinary tract infection Status: Acute Comment Review of Relevant I have reviewed the following items marilu (where applicable) has been applied. Labs Laboratory Tests Test 02/24/18 05:00 White Blood Count 7.3 x10^3/uL (4.0-11.0) Red Blood Count 2.57 x10^6/uL (3.50-5.40) Hemoglobin 8.3 g/dL (12.0-15.5) Hematocrit 24.1 % (36.0-47.0) Mean Corpuscular Volume 94 fL (79-100) Mean Corpuscular Hemoglobin 32 pg (25-35) Mean Corpuscular Hemoglobin Concent 34 g/dL (31-37) Red Cell Distribution Width 13.7 % (11.5-14.5) Platelet Count 305 x10^3/uL (140-400) Neutrophils (%) (Auto) 70 % (31-73) Lymphocytes (%) (Auto) 13 % (24-48) Monocytes (%) (Auto) 14 % (0-9) Eosinophils (%) (Auto) 3 % (0-3) Basophils (%) (Auto) 1 % (0-3) Neutrophils # (Auto) 5.1 x10^3uL (1.8-7.7) Lymphocytes # (Auto) 0.9 x10^3/uL (1.0-4.8) Monocytes # (Auto) 1.0 x10^3/uL (0.0-1.1) Eosinophils # (Auto) 0.2 x10^3/uL (0.0-0.7) Basophils # (Auto) 0.1 x10^3/uL (0.0-0.2) Sodium Level 136 mmol/L (136-145) Potassium Level 3.5 mmol/L (3.5-5.1) Chloride Level 104 mmol/L (98-107) Carbon Dioxide Level 23 mmol/L (21-32) Anion Gap 9 (6-14) Blood Urea Nitrogen 15 mg/dL (7-20) Creatinine 1.6 mg/dL (0.6-1.0) Estimated GFR (Cockcroft-Gault) 30.4 Glucose Level 94 mg/dL (70-99) Calcium Level 8.3 mg/dL (8.5-10.1) Microbiology 02/19/18 Blood Culture - Final, Complete NO GROWTH AFTER 5 DAYS 02/19/18 Urine Culture - Final, Complete 02/19/18 Urine Culture Result 1 (SUE) - Final, Complete 02/19/18 Antimicrobic Susceptibility - Final, Complete Medications Current Medications Sodium Chloride 1,000 ml @ 1,650 mls/hr Q37M IV Last administered on 02/19/18at 20:25; Start 02/19/18 at 19:57; Stop 02/19/18 at 20:56; Status DC Sodium Chloride 500 ml @ 1,000 mls/hr PRN Q30MIN PRN IV SEE COMMENTS; Start at 20:00; Stop 02/21/18 at 14:35; Status DC Piperacillin Sod/ Tazobactam Sod 4.5 gm/Sodium Chloride 100 ml @ 200 mls/hr Q6HRS IV ; Start 02/20/18 at 00:00; Stop 02/20/18 at 00:00; Status DC Vancomycin HCl (Vanco Per Pharmacy) 1 each PRN DAILY PRN MC SEE COMMENTS Last administered on 02/20/18at 00:57; Start 02/19/18 at 20:00; Stop 02/20/18 at 09:19; Status DC Acetaminophen (Tylenol Supp) 650 mg 1X ONCE IA Last administered on 02/19/18at 20:30; Start 02/19/18 at 20:30; Stop 02/19/18 at 20:31; Status DC Vancomycin HCl 1.25 gm/Sodium Chloride 250 ml @ 166.667 mls/hr 1X ONCE IV Last administered on 02/19/18at 20:55; Start 02/19/18 at 21:00; Stop 02/19/18 at 22: 29; Status DC Piperacillin Sod/ Tazobactam Sod 3.375 gm/Sodium Chloride 50 ml @ 100 mls/hr 1X ONCE IV Last administered on 02/19/18at 20:25; Start 02/19/18 at 20:30; Stop 02/19/18 at 20:59; Status DC Ondansetron HCl (Zofran) 4 mg PRN Q8HRS PRN IV NAUSEA/VOMITING; Start 02/19/18 at 21:30; Stop 02/20/18 at 11:09; Status DC Morphine Sulfate (Morphine Sulfate) 4 mg PRN Q2HR PRN IV PAIN; Start 02/19/18 at 21:30; Stop 02/20/18 at 21:29; Status DC Acetaminophen (Tylenol) 650 mg PRN Q4HRS PRN PO FEVER; Start 02/19/18 at 21:30; Stop 02/20/18 at 11:05; Status DC Sodium Chloride 1,000 ml @ 75 mls/hr 1X ONCE IV Last administered on at 00:20; Start 02/19/18 at 21:30; Stop 02/20/18 at 10:49; Status DC Vancomycin HCl (Vancomycin Random Level) 1 each 1X ONCE MC ; Start 02/21/18 at 21:00; Stop 02/21/18 at 21:00; Status DC Piperacillin Sod/ Tazobactam Sod 2.25 gm/Sodium Chloride 50 ml @ 100 mls/hr Q6HRS IV Last administered on 02/23/18 06:15; Start 02/20/18 at 09:30; Stop 02/23 at 08:51; Status DC Linezolid/Dextrose 300 ml @ 300 mls/hr Q12HR IV Last administered on at 11:24; Start 02/20/18 at 10:00 Lactobacillus Rhamnosus (Culturelle) 1 cap BID PO Last administered on 08:36; Start 02/20/18 at 21:00 Acetaminophen (Tylenol) 650 mg PRN Q4HRS PRN PO FEVER/HEADACHE; Start 02/20/18 at 11:00; Stop 02/20/18 at 11:05; Status DC Cyanocobalamin (Vitamin B-12) 1,000 mcg DAILY08 PO Last administered on 08:36; Start 02/20/18 at 11:30 Polyethylene Glycol (miraLAX PACKET) 17 gm PRN DAILY PRN PO CONSTIPATION; Start 02/21/18 at 09:00 Venlafaxine HCl (Effexor) 50 mg TID PO Last administered on 02/23/18 08:36; Start 02/20/18 at 14:00 Multivitamins (Thera M Plus) 1 tab DAILY PO Last administered on 02/23/18 08:36 ; Start 02/20/18 at 11:30 Acetaminophen (Tylenol) 650 mg PRN Q6HRS PRN PO FEVER/HEADACHE Last administered on 02/23/18 08:37; Start 02/20/18 at 11:00 Ondansetron HCl (Zofran) 4 mg PRN Q6HRS PRN IV NAUSEA/VOMITING; Start 02/20/18 at 11:00 Morphine Sulfate (Morphine Sulfate) 2 mg PRN Q2HR PRN IV MODERATE TO SEVERE PAIN; Start 02/20/18 at 11:00 Tramadol HCl (Ultram) 50 mg PRN Q6HRS PRN PO MILD TO MODERATE PAIN Last administered on 02/22/18at 21:32; Start 02/20/18 at 11:00 Docusate Sodium (Colace) 100 mg PRN DAILY PRN PO HARD STOOLS; Start 02/20/18 at 11:00 Heparin Sodium (Porcine) (Heparin Sq) 5,000 unit Q8HRS SQ Last administered on 02/25/18at 06:02; Start 02/20/18 at 14:00 Sodium Chloride 1,000 ml @ 75 mls/hr [id number] IV Last administered on 02/22/18at 08:50; Start 02/20/18 at 11:00; Stop 02/22/18 at 11:05; Status DC Potassium Chloride (KCl Oral Soln) 40 meq 1X ONCE PO Last administered on at 12:37; Start 02/21/18 at 11:45; Stop 02/21/18 at 11:46; Status DC Iron Sucrose 200 mg/Sodium Chloride 110 ml @ 55 mls/hr DAILY IV Last administered on 02/24/18at 10:04; Start 02/21/18 at 12:30; Stop 02/25/18 at 12:29 Albuterol/ Ipratropium (Duoneb) 3 ml RTQID NEB Last administered on 02/25/18at 08:16; Start 02/22/18 at 12:00 Albuterol Sulfate (Ventolin Neb Soln) 2.5 mg PRN Q4HRS PRN NEB SHORTNESS OF BREATH; Start 02/22/18 at 11:15 Meropenem 500 mg/ Sodium Chloride 50 ml @ 100 mls/hr Q8HRS IV Last administered on 02/25/18at 05:58; Start 02/23/18 at 09:30 Amino Acids/ Glycerin/ Electrolytes 1,000 ml @ 50 mls/hr Q20H IV Last administered on 02/24/18at 20:00; Start 02/23/18 at 12:00 Furosemide (Lasix) 20 mg 1X ONCE IVP Last administered on 02/23/18at 11:59; Start 02/23/18 at 12:00; Stop 02/23/18 at 12:01; Status DC Budesonide (Pulmicort) 0.5 mg RTBID NEB Last administered on 02/25/18at 08:16; Start 02/24/18 at 10:30 Furosemide (Lasix) 20 mg 1X ONCE IVP Last administered on 02/24/18at 13:18; Start 02/24/18 at 13:00; Stop 02/24/18 at 13:01; Status DC Active Scripts Active Reported Alum-Mag Hydroxide-Simeth Liq (Mag Hydrox/Al Hydrox/Simeth) 360 Ml Oral.susp 30 Ml PO PRN Q2HRS PRN Vitamin B-12 (Cyanocobalamin (Vitamin B-12)) 1,000 Mcg Tablet 1,000 Mcg PO DAILY08 Ondansetron Hcl 4 Mg Tablet 4 Mg PO PRN Q6HRS PRN Venlafaxine Hcl 75 Mg Tablet 150 Mg PO BID Nystatin 100,000 Unit/1 Ml Oral.susp 100,000 Unit TP BID Robitussin Cough-Chest Dm Liq (Guaifenesin/Dextromethorphan) 118 Ml Liquid 118 Ml PO PRN Q4HRS PRN Miralax (Polyethylene Glycol 3350) 17 Gm Powd.pack 1 Packet PO PRN DAILY PRN Dulcolax (Bisacodyl) 5 Mg Tablet.dr 10 Mg IA PRN DAILY PRN [Multi-Vitamins] 1 Tab PO DAILY Voltaren (Diclofenac Sodium) 100 Gm Gel..gram. 1 Gm TP Tylenol (Acetaminophen) 325 Mg Tablet 650 Mg PO PRN Q4HRS PRN Tramadol Hcl 50 Mg Tablet 1 Tab PO DAILY16 Tylenol (Acetaminophen) 325 Mg Tablet 650 Mg IA PRN Q4HRS PRN Vitals/I & O Vital Sign - Last 24 Hours 02/24/18 02/24/18 02/24/18 02/24/18 15:00 15:49 19:15 19:16 Temp 98.8 98.8 Pulse 93 Resp 22 B/P (MAP) 125/58 (80) Pulse Ox 93 97 97 O2 Delivery Room Air Room Air Room Air Room Air 02/24/18 02/24/18 02/24/18 02/25/18 19:34 20:00 23:17 03:56 Temp 98.8 98.5 98.2 98.8 98.5 98.2 Pulse 96 97 94 Resp 20 16 20 B/P (MAP) 119/51 (73) 101/47 (65) 110/56 (74) Pulse Ox 95 92 91 O2 Delivery Room Air Room Air Room Air Room Air 02/25/18 02/25/18 02/25/18 02/25/18 07:00 08:00 08:16 11:00 Temp 98.4 98.1 98.4 98.1 Pulse 92 96 Resp 18 18 B/P (MAP) 134/61 (85) 105/54 (71) Pulse Ox 94 92 94 O2 Delivery Room Air Room Air Room Air Room Air Intake and Output 02/24/18 02/24/18 02/25/18 15:00 23:00 07:00 Intake Total 0 ml 50 ml Balance 0 ml 50 ml Nutrition Consultation Dietary Evaluation: Recommendations by RD: PPN/TPN Comments: continue PPN at this time REC diet per DESK INTERVIEWER Expected Outcomes/Goals: to meet > 75% est nutr needs- not met New goal 02/25: diet advancement Malnutrition Findings: Body Fat Depletion (Non Severe: Mild Depletion Weight Status: Underweight SAYDA GAMBOA MD Feb 25, 2018 12:29
[2018-02-25 15:00] VITALS: BP 125/59
[2018-02-25] MEDS: IRON SUCROSE COMPLEX 200 MG in IV NORMAL SALINE 100ML 100 ML IV SCH (16:52)
[2018-02-25] MEDS ORDERED: MORPHINE SULFATE 20 MG/ML CONC SOLUTION. SL PRN (17:45)
[2018-02-25] MEDS ORDERED: LORazepam INTENSOL 2 MG/ML ORAL.CONC SL PRN (17:45)
[2018-02-25 19:26] VITALS: BP 119/67
[2018-02-25 23:37] VITALS: BP 116/58
[2018-02-26] MEDS: AMINO AC 3%/ELECTROLYTE/GLYCER 1,000 ML IV SCH
[2018-02-26 03:50] VITALS: BP 113/61
[2018-02-26] MEDS: HEPARIN PF for SUB-Q USE 5,000 UNIT/0.5 ML VIAL. SQ SCH (05:27)
[2018-02-26 07:00] VITALS: BP 128/68
[2018-02-26] MEDS: IPRATRPIUM/ALBUTEROL 0.5/2.5MG 3 ML NEBU. NEB SCH ×2 (07:37→11:48)
[2018-02-26] MEDS: BUDESONIDE 0.5 MG/2 ML NEBU. NEB SCH (07:37)
--- NOTE | 2018-02-26 08:49 | DISCH ---
DISCHARGE DISCHARGE INFORMATION: FINAL DIAGNOSIS Problems Medical Problems: (1) Acute sepsis Status: Acute (2) Altered mental status Status: Acute (3) Fever Status: Acute (4) Tachycardia Status: Acute (5) Urinary tract infection Status: Acute CONDITION ON DISCHARGE: Stable CODE STATUS: Code Status: DNR/DNI RESIDENTIAL: SNF STAY <30 DAYS: Yes HOSPICE: HOSPICE: Yes HOSPICE EVAL & TREAT: Yes POST DISCHARGE ORDERS: ACTIVITY ORDERS: Bedrest today WEIGHT BEARING STATUS: Touch down weight bearing DIET AFTER DISCHARGE: Regular TREATMENT/EQUIPMENT ORDERS: ADAPTIVE EQUIPMENT NEEDED: None DISCHARGE MEDICATIONS: Home Meds Reported Medications Mag Hydrox/Al Hydrox/Simeth (ALUM-MAG HYDROXIDE-SIMETH LIQ) 360 Ml Oral.susp, 30 ML PO PRN Q2HRS PRN for GI SYMPTOMS, MISC 02/19/18 Cyanocobalamin (Vitamin B-12) (VITAMIN B-12) 1,000 Mcg Tablet, 1000 MCG PO DAILY08, TAB 02/19/18 Ondansetron Hcl (ONDANSETRON HCL) 4 Mg Tablet, 4 MG PO PRN Q6HRS PRN for NAUSEA/ VOMITING, TAB 02/19/18 Venlafaxine Hcl (VENLAFAXINE HCL) 75 Mg Tablet, 150 MG PO BID, TAB 02/19/18 Nystatin (NYSTATIN) 100,000 Unit/1 Ml Oral.susp, 864989 UNIT TP BID, MISC 02/19/18 Guaifenesin/Dextromethorphan (Robitussin Cough-Chest Dm Liq) 118 Ml Liquid, 118 ML PO PRN Q4HRS PRN for COUGH, LIQUID 01/31/16 Polyethylene Glycol 3350 (MIRALAX) 17 Gm Powd.pack, 1 PACKET PO PRN DAILY PRN for CONSTIPATION, #30 PACKET 3 Refills 01/31/16 Bisacodyl (DULCOLAX) 5 Mg Tablet.dr, 10 MG FL PRN DAILY PRN for CONSTIPATION, # 4 TAB 01/31/16 [Multi-Vitamins] No Conflict Check, 1 TAB PO DAILY 11/16/15 Diclofenac Sodium (VOLTAREN) 100 Gm Gel..gram., 1 GM TP, #100 GM 2 Refills 09/01/15 Acetaminophen (TYLENOL) 325 Mg Tablet, 650 MG PO PRN Q4HRS PRN for PAIN 09/01/15 Tramadol Hcl (TRAMADOL HCL) 50 Mg Tablet, 1 TAB PO DAILY16 for PAIN, #30 TAB 09/01/15 Acetaminophen (TYLENOL) 325 Mg Tablet, 650 MG FL PRN Q4HRS PRN for PAIN 09/01/15 SAYDA GAMBOA MD Feb 26, 2018 08:49
[2018-02-26] MEDS: VENLAFAXINE 50 MG TABLET. PO SCH (10:58)
--- NOTE | 2018-02-26 10:58 | PDOC3 ---
Discharge Summary Visit Information Date of Admission: Feb 19, 2018 Date of Discharge: Feb 26, 2018 Admitting Diagnosis Comment: AMS, metabolic encephalopathy severe baseline dementia UTI POA SEpsis JINNY, vasomotor ckd3 SNF resident hypokalemia iron deficiency mild pulmanory edema DNR Final Diagnosis Problems Medical Problems: (1) Acute sepsis Status: Acute (2) Altered mental status Status: Acute (3) Fever Status: Acute (4) Tachycardia Status: Acute (5) Urinary tract infection Status: Acute Brief Hospital Course Allergies Allergies Coded Allergies Type Severity Reaction Last Updated Verified levofloxacin Allergy Intermediate 09/01/15 Yes Vital Signs Vital Signs Date Time Temp Pulse Resp B/P (MAP) Pulse Ox O2 Delivery O2 Flow Rate FiO2 02/26/18 07:37 93 Room Air 02/26/18 07:00 98.2 94 16 128/68 (88) 98.2 Brief Hospital Course Ms. Marcelino is a 87 old female, SNU resident, admitted because of UTIs confusion. She has other comorbidities namely some baseline dementia and CK D stage III with history of CHF. She is a DNR. Essentially stayed maybe 7 days with us with no meaningful recovery chance or no improvement during her stay. Palliative got involved. Family and patient wants hospice and this is appropriate. Patient is a DNR, hospice packet initiated Patient seen and examined consults performed infectious disease pulmonary Procedures performed none CODE STATUS DNR Disposition to SNU with hospice Discharge Information Condition at Discharge: Stable Disposition/Orders: D/C to Home w/ Hospice Scheduled Cyanocobalamin (Vitamin B-12) (Vitamin B-12) 1,000 Mcg Tablet, 1,000 MCG PO DAILY08, (Reported) Entered as Reported by: LURDES LAUREANO on 02/19/182334 Last Action: Continued on 02/20/181051 by SANJAY SHIN MD Nystatin (Nystatin) 100,000 Unit/1 Ml Oral.susp, 100,000 UNIT TP BID, (Reported) Entered as Reported by: LURDES LAUREANO on 02/19/182334 Last Action: HELD on 02/20/181051 by SANJAY SHIN MD Tramadol Hcl (Tramadol Hcl) 50 Mg Tablet, 1 TAB PO DAILY16 for PAIN, #30 ( Reported) Entered as Reported by: PHILLIP WEBB on 09/01/155 Last Action: HELD on 02/20/181051 by SANJAY SHIN MD Venlafaxine Hcl (Venlafaxine Hcl) 75 Mg Tablet, 150 MG PO BID, (Reported) Entered as Reported by: LURDES LAUREANO on 02/19/182334 Last Action: Converted on 02/20/181051 by SANJAY SHIN MD [Multi-Vitamins] , 1 TAB PO DAILY, (Reported) Entered as Reported by: MARIO LOPEZ on 11/16/15 2350 Last Action: Converted on 02/20/181051 by SANJAY SHIN MD Scheduled PRN Acetaminophen (Tylenol) 325 Mg Tablet, 650 MG NC PRN Q4HRS PRN for PAIN, ( Reported) Entered as Reported by: PHILLIP WEBB on 09/01/15314 Last Action: HELD on 02/20/181051 by SANJAY SHIN MD Acetaminophen (Tylenol) 325 Mg Tablet, 650 MG PO PRN Q4HRS PRN for PAIN, ( Reported) Entered as Reported by: PHILLIP WEBB on 09/01/15314 Last Action: Continued on 02/20/181051 by SANJAY SHIN MD Bisacodyl (Dulcolax) 5 Mg Tablet.dr, 10 MG NC PRN DAILY PRN for CONSTIPATION, #4 (Reported) Entered as Reported by: PHILLIP WEBB on 01/31/16 1711 Last Action: Reviewed on 02/19/182334 by LURDES LAUREANO Guaifenesin/Dextromethorphan (Robitussin Cough-Chest Dm Liq) 118 Ml Liquid, 118 ML PO PRN Q4HRS PRN for COUGH, (Reported) Entered as Reported by: PHILLIP WEBB on 01/31/16 1800 Last Action: HELD on 02/20/181051 by SANJAY SHIN MD Mag Hydrox/Al Hydrox/Simeth (Alum-Mag Hydroxide-Simeth Liq) 360 Ml Oral.susp, 30 ML PO PRN Q2HRS PRN for GI SYMPTOMS, (Reported) Entered as Reported by: LURDES LAUREANO on 02/19/182334 Last Action: HELD on 02/20/181051 by SANJAY SHIN MD Ondansetron Hcl (Ondansetron Hcl) 4 Mg Tablet, 4 MG PO PRN Q6HRS PRN for NAUSEA/ VOMITING, (Reported) Entered as Reported by: LURDES LAUREANO on 02/19/182334 Last Action: HELD on 02/20/181051 by SANJAY SHIN MD Polyethylene Glycol 3350 (Miralax) 17 Gm Powd.pack, 1 PACKET PO PRN DAILY PRN for CONSTIPATION, #30 Ref 3 (Reported) Entered as Reported by: PHILLIP WEBB on 01/31/16 1711 Last Action: Converted on 02/20/181051 by SANJAY SHIN MD Miscellaneous Medications Diclofenac Sodium (Voltaren) 100 Gm Gel..gram., 1 GM TP, #100 Ref 2 (Reported) Entered as Reported by: PHILLIP WEBB on 09/01/15 0315 Last Action: Reviewed on 02/19/182334 by SAYDA MONTANO MD Feb 26, 2018 10:58
[2018-02-26 11:00] VITALS: BP 127/61
--- NOTE | 2018-02-26 11:01 | PDOC ---
PULMONARY PROGRESS NOTES Subjective PT FEELS BETTER LESS SOA Vitals Vital Signs Date Time Temp Pulse Resp B/P (MAP) Pulse Ox O2 Delivery O2 Flow Rate FiO2 02/26/18 07:37 93 Room Air 02/26/18 07:00 98.2 94 16 128/68 (88) 98.2 ROS: No Nausea, No Chest Pain, No Abdominal Pain, No Increase Cough Lungs: Clear, Crackles Cardiovascular: S1, S2 Abdomen: Soft Neuro Exam: Alert Extremities: No Edema Skin: Warm Medications Active Scripts Medications Dose Route/Sig Max Daily Dose Days Date Category Alum-Mag Hydroxide-Simeth Liq (Mag Hydrox/Al Hydrox/Simeth) 360 Ml Oral.susp 30 Ml PO PRN Q2HRS PRN 02/19/18 Reported Vitamin B-12 (Cyanocobalamin (Vitamin B-12)) 1,000 Mcg Tablet 1,000 Mcg PO DAILY08 02/19/18 Reported Ondansetron Hcl 4 Mg Tablet 4 Mg PO PRN Q6HRS PRN 02/19/18 Reported Venlafaxine Hcl 75 Mg Tablet 150 Mg PO BID 02/19/18 Reported Nystatin 100,000 Unit/1 Ml Oral.susp 100,000 Unit TP BID 02/19/18 Reported Robitussin Cough-Chest Dm Liq (Guaifenesin/Dextromethorphan) 118 Ml Liquid 118 Ml PO PRN Q4HRS PRN 01/31/16 Reported Miralax (Polyethylene Glycol 3350) 17 Gm Powd.pack 1 Packet PO PRN DAILY PRN 01/31/16 Reported Dulcolax (Bisacodyl) 5 Mg Tablet.dr 10 Mg NE PRN DAILY PRN 01/31/16 Reported [Multi-Vitamins] 1 Tab PO DAILY 11/16/15 Reported Voltaren (Diclofenac Sodium) 100 Gm Gel..gram. 1 Gm TP 09/01/15 Reported Tylenol (Acetaminophen) 325 Mg Tablet 650 Mg PO PRN Q4HRS PRN 09/01/15 Reported Tramadol Hcl 50 Mg Tablet 1 Tab PO DAILY16 09/01/15 Reported Tylenol (Acetaminophen) 325 Mg Tablet 650 Mg NE PRN Q4HRS PRN 09/01/15 Reported Impression . IMPRESSION: 1. Wheezing, probably secondary to acute bronchospasm versus acute pulmonary edema versus aspiration 2. Possible aspiration. 3. Acute bronchospasm. 4. Sepsis. 5. Urinary tract infection. 6. Chronic kidney disease. 7. Anemia. Plan . PT FEELS BETTER READY FOR D/C THANKS YONG DAMICO MD Feb 26, 2018 11:01
--- NOTE | 2018-02-26 13:25 | PDOC ---
Infectious Disease Note Subjective Subjective Opens eyes to son's voice , speaks but difficult to understand No fevers reported Vital Sign Vital Signs Vital Signs Date Time Temp Pulse Resp B/P (MAP) Pulse Ox O2 Delivery O2 Flow Rate FiO2 02/26/18 11:49 Room Air 02/26/18 11:00 98.2 94 16 127/61 (83) 92 98.2 Physical Exam PHYSICAL EXAM GENERAL: Resting quietly, NAD HENT: Oral cavity dry LUNGS: Congestion, upper airway rattle HEART: S1, S2. ABDOMEN: Soft, nontender.BS active EXTREMITIES: No clubbing, cyanosis or edema SKIN: Warm to touch without signs of rash. NEUROLOGIC: Opens eyes to son's voice, decrease attention span, no follow commands PIV Labs Micro Microbiology 02/19/18 Blood Culture - Final, Complete NO GROWTH AFTER 5 DAYS 02/19/18 Urine Culture - Final, Complete 02/19/18 Urine Culture Result 1 (SUE) - Final, Complete 02/19/18 Antimicrobic Susceptibility - Final, Complete Objective Assessment UTI- POA - Proteus (Resistant to amp, quinolones, NTF, tetra, Bactrim) Leukocytosis - improved Rhonchi - ? aspiration - although reviewed speech eval 02/20 Fever - resolved Encephalopathy Abx allergy - Levoflox - mental status change JINNY Interstitial opacity Anemia - better Dementia Plan Plan of Care po augmentin D/w son in detail, to to eat and go to hospice at facility ( pt was on hospice and did not deteriorate before, but now he said she should be comfortable and happy ) D/w CRISTINA MIXON MD Feb 26, 2018 13:25
== END 2018-02-26 14:25 | disposition hospice, inpatient (51) | DRG 871 ==
LOC: ER 19:22 → 6 SOUTH 20:18
PROVIDERS: ADMIT Family Medicine; ATTEND Family Medicine
DX: A41.9 Sepsis, unspecified organism (principal); G93.41 Metabolic encephalopathy; N17.0 Acute kidney failure with tubular necrosis; N39.0 Urinary tract infection, site not specified; F03.90 Unspecified dementia, unspecified severity, without behavioral disturbance, psychotic disturbance, mood disturbance, and anxiety; N18.3 Chronic kidney disease, stage 3 (moderate); E87.6 Hypokalemia; K59.00 Constipation, unspecified; E11.22 Type 2 diabetes mellitus with diabetic chronic kidney disease; D64.9 Anemia, unspecified; J98.01 Acute bronchospasm; Z66 Do not resuscitate; E61.1 Iron deficiency; Z16.11 Resistance to penicillins; B96.4 Proteus (mirabilis) (morganii) as the cause of diseases classified elsewhere; I50.9 Heart failure, unspecified; G89.29 Other chronic pain; Z88.8 Allergy status to other drugs, medicaments and biological substances; Z82.49 Family history of ischemic heart disease and other diseases of the circulatory system; Z88.1 Allergy status to other antibiotic agents
CPT/HCPCS: 36415; 70450; 71045; 80048; 80053; 81001; 82274; 82607; 82728; 82746; 83540; 83550; 83605; 83735; 84145; 84484; 85007; 85025; 87040; 87086; 87186; 87324; 87641; 94640; 94760; 96365; 96368; J1756; J1940; J2020; J2185; J2270; J2543; J3370; J7030; J7050; J7620; J7626; P9612; 92610; 99285-25